=== PATIENT | female | born 1975 | race Caucasian/White ===

== ENCOUNTER 2022-01-09 15:51 | Emergency (ER) | payer OTHER, SELFPAY ==
--- OUTSIDE RECORDS SUMMARY | 2022-01-09 15:58 | XMS REPORT | Continuity of Care Document ---
:1975 Author Organization [facility] t Address [address] [place] [address] Care Team Providers Name Role Phone KEY ONTIVEROS Primary Care Physician Unavailable Aldo, S Attending Clinician Unavailable Susanna LY Attending Clinician Unavailable Susanna Ly DO Attending Clinician Leti Pink Attending Clinician Doctor Unassigned, Name Attending Clinician Unavailable Radiology Attending Clinician Unavailable RADIOLOGY Attending Clinician Unavailable Surinder GREGG Attending Clinician Unavailable WM PICHARDO Attending Clinician Unavailable Wm Pichardo DO Attending Clinician Only, Test Attending Clinician Unavailable Lazaro WHITE, H Attending Clinician [facility] Attending Clinician [phone] Aly Cardoso NP Attending Clinician Aries WHITE Attending Clinician Alberto Attending Clinician RHONDA H Attending Clinician Unavailable Chey ANDERSON Attending Clinician Unavailable MANDY Attending Clinician Unavailable Resident Jose Attending Clinician Unavailable Anderson MD, W Attending Clinician Omaghomi WELD FITTER Attending Clinician Unknown Attending Clinician Unavailable Mandy DUBOSES Attending Clinician Virology, Pedi Infec Disease Attending Clinician Unavailgabriella García MD, O Attending Clinician Adán WHITE Attending Clinician Hi DUCKWORTH, M Attending Clinician Unavailable Gemini WHITE Attending Clinician Laura WHITE, E Attending Clinician Mir RN Attending Clinician Unavailable [facility] Attending Clinician Unavailable Fellow, [facility] Attending Clinician Unavailable Des VALDEZ Attending Clinician Noel WICKP Attending Clinician NOEL Attending Clinician Unavailable Physician, Primary or Family Admitting Clinician UnavailSusanna Lofton Admitting Clinician Unavailable Maribell ELLIS Admitting Clinician Unavailable Payers Payer Name Policy Type Policy Number Effective Date Expiration Date S [employer] [place] [id number] 2020 00:00:00 WOMEN Problems Condition Condition Condition Status Onset Resolution Last Treating Co mments Source Name Details Category Date Date Treatment Clinician Date Drug-induc Drug-induc Disease Active U nivers ed ed 5-28 ity of hepatitis [place] 00:[place] [facility] Amphetamin Amphetamin Disease Active U nivers e use e use 5-28 [place] disorder, [place], [place] Essential Essential Disease Active Uni vers hypertensi hypertensi 5-28 it y of on on 00:00: [place] [facility] Amphetamin Amphetamin Disease Active U nivers e use e use 5-28 [place] disorder, disorder, [place] [facility] Papanicola Papanicola Disease Active Overview : Univers ou smear ou smear 06-27 Formattin ity of of cervix of cervix 00:00: [place] with high with high 00 note Medi jj grade grade might be Branch squamous squamous different intraepith intraepith from the raul carter original. 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 Per pap result "CONSIDER COLPOSCOP Y AND BIOPSY. IF A BIOPSY IS EVALUATED AT ANOTHERIN STITUTION , PLEASE FORWARD A COPY OF THE PATHOLOGY REPORT TO THE [facility] CYTOPATHO LOGY LABORATOR Y FOR RN RECOVERY PURPOSES. " Cervical Cervical Disease Active Overview: Un maira high risk high risk 06-24 Formattin i ty of human human 00:00: g of this [place] papillomav papillomav 00 note Me dical irus (HPV) irus (HPV) might be Branch DNA test DNA test different positive positive from the original. Pap pending Hypothyroi Hypothyroi Disease Active 2005-10 Overview : Univers dism dism 10-25 Formattin ity of 00:00: g of this [place] 00 note Medical might be Branch different from the original. 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 Allergies, Adverse Reactions, Alerts Allergy Allergy Status Severity Reaction(s) Onset Inactive Treating Comm ents Source Name Type Date Date Clinician No Known DA Active U 2020-10 [facility] Allergie 0-14 Clear s 00:00: Garcia 00 [facility] No Known DA Active U 2020-10 [facility] Allergie 0-14 Clear s 00:00: Garcia 00 [facility] morphine DA Active MO ITCHING [facility] 3-17 [place] 00:00: d 00 [facility] morphine DA Active MO 2018-0 [facility] 3-17 Clear 00:00: Garcia 00 [facility] Morphine Propensi Active Itching 2005-10 Unive rs ty to 10-25 ity of adverse 00:00: [place] reaction 00 [facility] Branch MORPHINE DRUG Active Low ITCHING 2005-10 Univers INGREDI 10-25 ity of 00:00: [place] 00 [facility] Social History Social Habit Start Date Stop Date Quantity Comments Source ASSERTION 2019-03-01 University of 00:00:00 [facility] Exposure to Yes University of SARS-CoV-2 (event) [facility] Alcohol intake 2021-11-19 2021-11-19 Current University 00:00:00 00:00:00 non-drinker of [facility] alcohol Branch (finding) Cigarettes smoked 2020-03-19 2020-03-19 Univers ity of current (pack per 00:00:00 00:00:00 [facility] ed) - Reported Branch Tobacco use and 2020-03-19 2020-03-19 Never used Universit y of exposure 00:00:00 00:00:00 [facility] Cigarette 2020-03-19 2020-03-19 University of pack-years 00:00:00 00:00:00 [facility] Tobacco Comment 2019-08-07 2019-08-07 qiut in aug 2018 Uni versity of 00:00:00 00:00:00 [facility] History of tobacco 2018-03-19 Cigarette Smoker University of use 00:00:00 [facility] Sex [birth year] At [birth year] Universit y of 00:00:00 00:00:00 [facility] Smoking Status Start Date Stop Date Source Former smoker 2020-03-19 00:00:00 2020-03-19 00:00:00 Universi ty of [facility] Current every day 2019-07-11 00:00:00 [facility] smoker [facility] Medications Ordered Filled Start Stop Current Ordering Indication Dosage Frequency Signature Comments Components Source Medication Medication Date Date Medication? Clinician (SIG) Name Name ibuprofen 2021- No 600mg 600 mg, Uni vers (IBU) 11-19 Oral, ity of tablet 600 16:45: 15:52 ONCE, 1 [place] as mg 00 :00 dose, On Medical Fri Branch 11/19/21 at 1045, OSMAN NaCl 0.9% 2019- No 1000mL at 999 Uni vers (NS) bolus 04-24 mL/hr, ity of infusion 05:30: 06:15 1,000 mL, Av[facility] as 1,000 mL 00 :00 IV Medical Infusion, Branch ONCE, 1 dose, 04/24/20 at 0030, STAT dicyclomine 2019- No 20mg 20 mg, Uni vers (BENTYL) 04-24 Intramuscu ity of injection 05:30: 05:30 [place]CE [place] 20 mg 00 :00 NOW, 1 Medical dose, Fri Branch 04/24/20 at 0030, Routine ketorolac 2019- No 30mg 30 mg, Unive rs (TORADOL) 04-24 Slow IV ity of injection 05:30: 05:08 Push, [place] 30 mg 00 :00 ONCE, 1 Medical dose, Fri Branch 04/24/20 at 0030, Routine
membership manager approving Restricted medication : ALIZA LIU ketorolac 2020-0 Yes [id number] 10mg Take 1 U nivers 10 mg 7-03 tablet by ity of tablet 00:00: mouth [place] 00 every 6 Medical (six) Branch hours as needed for Pain (scale 4-6) or Pain (scale 7-10). traMADol 50 2020-0 Yes [id number] 50mg Take 1 Univers mg tablet 7-03 tablet by ity o f 00:00: mouth [place] 00 every 6 Medical (six) Branch hours as needed for Pain (scale 7-10). hyoscyamine 2020-[id number] 2 Univers sulfate 7-03 tablets ity of (LEVSIN/SL) 00:00: under the [place] 0.125 mg 00 tongue Medical sublingual every 6 Branch tablet (six) hours as needed (Abdominal pain or cramping). ondansetron 2020-0 Yes [id number] 8mg Take 1 Univers (ZOFRAN 7-03 tablet by ity of ODT) 8 mg 00:00: mouth [place] disintegrat 00 every 8 Medic al ing tablet (eight) Branch hours as needed for Nausea and Vomiting (N/V). ketorolac 2020-0 Yes [id number] 10mg Take 1 U nivers 10 mg 7-03 tablet by ity of tablet 00:00: mouth [place] 00 every 6 Medical (six) Branch hours as needed for Pain (scale 4-6) or Pain (scale 7-10). traMADol 50 2020-0 Yes [id number] 50mg Take 1 Univers mg tablet 7-03 tablet by ity o f 00:00: mouth [place] 00 every 6 Medical (six) Branch hours as needed for Pain (scale 7-10). hyoscyamine 2020-[id number] 2 Univers sulfate 7-03 tablets ity of (LEVSIN/SL) 00:00: under the [place] 0.125 mg 00 tongue Medical sublingual every 6 Branch tablet (six) hours as needed (Abdominal pain or cramping). ondansetron 2020-0 Yes [id number] 8mg Take 1 Univers (ZOFRAN 7-03 tablet by ity of ODT) 8 mg 00:00: mouth [place] disintegrat 00 every 8 Medic al ing tablet (eight) Branch hours as needed for Nausea and Vomiting (N/V). ketorolac 2020-0 Yes [id number] 10mg Take 1 U nivers 10 mg 7-03 tablet by ity of tablet 00:00: mouth [place] 00 every 6 Medical (six) Branch hours as needed for Pain (scale 4-6) or Pain (scale 7-10). traMADol 50 2020-0 Yes [id number] 50mg Take 1 Univers mg tablet 7-03 tablet by ity o f 00:00: mouth [place] 00 every 6 Medical (six) Branch hours as needed for Pain (scale 7-10). hyoscyamine 2020-[id number] 2 Univers sulfate 7-03 tablets ity of (LEVSIN/SL) 00:00: under the [place] 0.125 mg 00 tongue Medical sublingual every 6 Branch tablet (six) hours as needed (Abdominal pain or cramping). ondansetron 2020-0 Yes [id number] 8mg Take 1 Univers (ZOFRAN 7-03 tablet by ity of ODT) 8 mg 00:00: mouth [place] disintegrat 00 every 8 Medic al ing tablet (eight) Branch hours as needed for Nausea and Vomiting (N/V). ketorolac 2020-0 Yes [id number] 10mg Take 1 U nivers 10 mg 7-03 tablet by ity of tablet 00:00: mouth [place] 00 every 6 Medical (six) Branch hours as needed for Pain (scale 4-6) or Pain (scale 7-10). traMADol 50 2020-0 Yes [id number] 50mg Take 1 Univers mg tablet 7-03 tablet by ity o f 00:00: mouth [place] 00 every 6 Medical (six) Branch hours as needed for Pain (scale 7-10). hyoscyamine 2020-[id number] 2 Univers sulfate 7-03 tablets ity of (LEVSIN/SL) 00:00: under the [place] 0.125 mg 00 tongue Medical sublingual every 6 Branch tablet (six) hours as needed (Abdominal pain or cramping). ondansetron 2020-0 Yes [id number] 8mg Take 1 Univers (ZOFRAN 7-03 tablet by ity of ODT) 8 mg 00:00: mouth [place] disintegrat 00 every 8 Medic al ing tablet (eight) Branch hours as needed for Nausea and Vomiting (N/V). ketorolac 2020-0 Yes [id number] 10mg Take 1 U nivers 10 mg 7-03 tablet by ity of tablet 00:00: mouth [place] 00 every 6 Medical (six) Branch hours as needed for Pain (scale 4-6) or Pain (scale 7-10). traMADol 50 2020-0 Yes [id number] 50mg Take 1 Univers mg tablet 7-03 tablet by ity o f 00:00: mouth [place] 00 every 6 Medical (six) Branch hours as needed for Pain (scale 7-10). hyoscyamine 2020-[id number] 2 Univers sulfate 7-03 tablets ity of (LEVSIN/SL) 00:00: under the [place] 0.125 mg 00 tongue Medical sublingual every 6 Branch tablet (six) hours as needed (Abdominal pain or cramping). ondansetron 2020-0 Yes [id number] 8mg Take 1 Univers (ZOFRAN 7-03 tablet by ity of ODT) 8 mg 00:00: mouth [place] disintegrat 00 every 8 Medic al ing tablet (eight) Branch hours as needed for Nausea and Vomiting (N/V). ketorolac 2020-0 Yes [id number] 10mg Take 1 U nivers 10 mg 7-03 tablet by ity of tablet 00:00: mouth [place] 00 every 6 Medical (six) Branch hours as needed for Pain (scale 4-6) or Pain (scale 7-10). traMADol 50 2020-0 Yes [id number] 50mg Take 1 Univers mg tablet 7-03 tablet by ity o f 00:00: mouth [place] 00 every 6 Medical (six) Branch hours as needed for Pain (scale 7-10). hyoscyamine 2020-[id number] 2 Univers sulfate 7-03 tablets ity of (LEVSIN/SL) 00:00: under the [place] 0.125 mg 00 tongue Medical sublingual every 6 Branch tablet (six) hours as needed (Abdominal pain or cramping). ondansetron 2020-0 Yes [id number] 8mg Take 1 Univers (ZOFRAN 7-03 tablet by ity of ODT) 8 mg 00:00: mouth [place] disintegrat 00 every 8 Medic al ing tablet (eight) Branch hours as needed for Nausea and Vomiting (N/V). ketorolac 2020-0 Yes [id number] 10mg Take 1 U nivers 10 mg 7-03 tablet by ity of tablet 00:00: mouth [place] 00 every 6 Medical (six) Branch hours as needed for Pain (scale 4-6) or Pain (scale 7-10). traMADol 50 2020-0 Yes [id number] 50mg Take 1 Univers mg tablet 7-03 tablet by ity o f 00:00: mouth [place] 00 every 6 Medical (six) Branch hours as needed for Pain (scale 7-10). hyoscyamine 2020-[id number] 2 Univers sulfate 7-03 tablets ity of (LEVSIN/SL) 00:00: under the [place] 0.125 mg 00 tongue Medical sublingual every 6 Branch tablet (six) hours as needed (Abdominal pain or cramping). ondansetron 2020-0 Yes [id number] 8mg Take 1 Univers (ZOFRAN 7-03 tablet by ity of ODT) 8 mg 00:00: mouth [place] disintegrat 00 every 8 Medic al ing tablet (eight) Branch hours as needed for Nausea and Vomiting (N/V). ketorolac 2020-0 Yes [id number] 10mg Take 1 U nivers 10 mg 7-03 tablet by ity of tablet 00:00: mouth [place] 00 every 6 Medical (six) Branch hours as needed for Pain (scale 4-6) or Pain (scale 7-10). traMADol 50 2020-0 Yes [id number] 50mg Take 1 Univers mg tablet 7-03 tablet by ity o f 00:00: mouth [place] 00 every 6 Medical (six) Branch hours as needed for Pain (scale 7-10). hyoscyamine 2020-[id number] 2 Univers sulfate 7-03 tablets ity of (LEVSIN/SL) 00:00: under the [place] 0.125 mg 00 tongue Medical sublingual every 6 Branch tablet (six) hours as needed (Abdominal pain or cramping). ondansetron 2020-0 Yes [id number] 8mg Take 1 Univers (ZOFRAN 7-03 tablet by ity of ODT) 8 mg 00:00: mouth [place] disintegrat 00 every 8 Medic al ing tablet (eight) Branch hours as needed for Nausea and Vomiting (N/V). ketorolac 2020-0 Yes [id number] 10mg Take 1 U nivers 10 mg 7-03 tablet by ity of tablet 00:00: mouth [place] 00 every 6 Medical (six) Branch hours as needed for Pain (scale 4-6) or Pain (scale 7-10). traMADol 50 2020-0 Yes [id number] 50mg Take 1 Univers mg tablet 7-03 tablet by ity o f 00:00: mouth [place] 00 every 6 Medical (six) Branch hours as needed for Pain (scale 7-10). hyoscyamine 2020-[id number] 2 Univers sulfate - tablets ity of (LEVSIN/SL) 00:00: under the [place] 0.125 mg 00 tongue Medical sublingual every 6 Branch tablet (six) hours as needed (Abdominal pain or cramping). ondansetron 2020-0 Yes [id number] 8mg Take 1 Univers (ZOFRAN 7-03 tablet by ity of ODT) 8 mg 00:00: mouth [place] disintegrat 00 every 8 Medic al ing tablet (eight) Branch hours as needed for Nausea and Vomiting (N/V). ketorolac 2020-0 Yes [id number] 10mg Take 1 U nivers 10 mg 7-03 tablet by ity of tablet 00:00: mouth [place] 00 every 6 Medical (six) Branch hours as needed for Pain (scale 4-6) or Pain (scale 7-10). traMADol 50 2020-0 2021- No [id number] 50mg Take 1 Univers mg tablet -11-19 tablet by ity of 00:00: 00:00 mouth [place] 00 :00 every 6 Medical (six) Branch hours as needed for Pain (scale 7-10). hyoscyamine 2020-0 2021- No [id number] .25mg Place 2 Univers sulfate -12 21-28 tablets ity of (LEVSIN/SL) 00:00: 00:00 under the [place] 0.125 mg 00 :00 tongue Medical sublingual every 6 Branch tablet (six) hours as needed (Abdominal pain or cramping). ondansetron 2020-0 2021- No [id number] 8mg Take 1 Univers (ZOFRAN 7-03 11-19 tablet by ity of ODT) 8 mg 00:00: 00:00 mouth [place] disintegrat 00 :00 every 8 Medic al ing tablet (eight) Branch hours as needed for Nausea and Vomiting (N/V). traMADol 50 2020-0 Yes [id number] 50mg Take 1 Univers mg tablet 5-30 tablet by ity o f 00:00: mouth [place] 00 every Medical morning as Branch needed for Pain (scale 7-10). omeprazole 2020-0 Yes [id number] 40mg Take 1 U nivers 40 mg 5-30 capsule by ity of capsule 00:00: mouth [place] 00 daily. Medical Branch ondansetron 2020-0 Yes [id number] 8mg Take 1 Univers 8 mg tablet 5-30 tablet by ity of 00:00: mouth [place] 00 every 8 Medical (eight) Branch hours as needed for Nausea and Vomiting (N/V). traMADol 50 2020-0 Yes [id number] 50mg Take 1 Univers mg tablet 5-30 tablet by ity o f 00:00: mouth [place] 00 every Medical morning as Branch needed for Pain (scale 7-10). omeprazole 2020-0 Yes [id number] 40mg Take 1 U nivers 40 mg 5-30 capsule by ity of capsule 00:00: mouth [place] 00 daily. Medical Branch ondansetron 2020-0 Yes [id number] 8mg Take 1 Univers 8 mg tablet 5-30 tablet by ity of 00:00: mouth [place] 00 every 8 Medical (eight) Branch hours as needed for Nausea and Vomiting (N/V). traMADol 50 2020-0 Yes [id number] 50mg Take 1 Univers mg tablet 5-30 tablet by ity o f 00:00: mouth [place] 00 every Medical morning as Branch needed for Pain (scale 7-10). omeprazole 2020-0 Yes [id number] 40mg Take 1 U nivers 40 mg 5-30 capsule by ity of capsule 00:00: mouth [place] 00 daily. Medical Branch ondansetron 2020-0 Yes [id number] 8mg Take 1 Univers 8 mg tablet 5-30 tablet by ity of 00:00: mouth [place] 00 every 8 Medical (eight) Branch hours as needed for Nausea and Vomiting (N/V). traMADol 50 2020-0 Yes [id number] 50mg Take 1 Univers mg tablet 5-30 tablet by ity o f 00:00: mouth [place] 00 every Medical morning as Branch needed for Pain (scale 7-10). omeprazole 2020-0 Yes [id number] 40mg Take 1 U nivers 40 mg 5-30 capsule by ity of capsule 00:00: mouth [place] 00 daily. Medical Branch ondansetron 2020-0 Yes [id number] 8mg Take 1 Univers 8 mg tablet 5-30 tablet by ity of 00:00: mouth [place] 00 every 8 Medical (eight) Branch hours as needed for Nausea and Vomiting (N/V). traMADol 50 2020-0 Yes [id number] 50mg Take 1 Univers mg tablet 5-30 tablet by ity o f 00:00: mouth [place] 00 every Medical morning as Branch needed for Pain (scale 7-10). omeprazole 2020-0 Yes [id number] 40mg Take 1 U nivers 40 mg 5-30 capsule by ity of capsule 00:00: mouth [place] 00 daily. Medical Branch ondansetron 2020-0 Yes [id number] 8mg Take 1 Univers 8 mg tablet 5-30 tablet by ity of 00:00: mouth [place] 00 every 8 Medical (eight) Branch hours as needed for Nausea and Vomiting (N/V). traMADol 50 2020-0 Yes [id number] 50mg Take 1 Univers mg tablet 5-30 tablet by ity o f 00:00: mouth [place] 00 every Medical morning as Branch needed for Pain (scale 7-10). omeprazole 2020-0 Yes [id number] 40mg Take 1 U nivers 40 mg 5-30 capsule by ity of capsule 00:00: mouth [place] 00 daily. Medical Branch ondansetron 2020-0 Yes [id number] 8mg Take 1 Univers 8 mg tablet 5-30 tablet by ity of 00:00: mouth [place] 00 every 8 Medical (eight) Branch hours as needed for Nausea and Vomiting (N/V). traMADol 50 2020-0 Yes [id number] 50mg Take 1 Univers mg tablet 5-30 tablet by ity o f 00:00: mouth [place] 00 every Medical morning as Branch needed for Pain (scale 7-10). omeprazole 2020-0 Yes [id number] 40mg Take 1 U nivers 40 mg 5-30 capsule by ity of capsule 00:00: mouth [place] 00 daily. Medical Branch ondansetron 2020-0 Yes [id number] 8mg Take 1 Univers 8 mg tablet 5-30 tablet by ity of 00:00: mouth [place] 00 every 8 Medical (eight) Branch hours as needed for Nausea and Vomiting (N/V). traMADol 50 2020-0 Yes [id number] 50mg Take 1 Univers mg tablet 5-30 tablet by ity o f 00:00: mouth [place] 00 every Medical morning as Branch needed for Pain (scale 7-10). omeprazole 2020-0 Yes [id number] 40mg Take 1 U nivers 40 mg 5-30 capsule by ity of capsule 00:00: mouth [place] 00 daily. Medical Branch ondansetron 2020-0 Yes [id number] 8mg Take 1 Univers 8 mg tablet 5-30 tablet by ity of 00:00: mouth [place] 00 every 8 Medical (eight) Branch hours as needed for Nausea and Vomiting (N/V). traMADol 50 2020-0 Yes [id number] 50mg Take 1 Univers mg tablet 5-30 tablet by ity o f 00:00: mouth [place] 00 every Medical morning as Branch needed for Pain (scale 7-10). omeprazole 2020-0 Yes [id number] 40mg Take 1 U nivers 40 mg 5-30 capsule by ity of capsule 00:00: mouth [place] 00 daily. Medical Branch ondansetron 2020-0 Yes [id number] 8mg Take 1 Univers 8 mg tablet 5-30 tablet by ity of 00:00: mouth [place] 00 every 8 Medical (eight) Branch hours as needed for Nausea and Vomiting (N/V). traMADol 50 2020-0 Yes [id number] 50mg Take 1 Univers mg tablet 5-30 tablet by ity o f 00:00: mouth [place] 00 every Medical morning as Branch needed for Pain (scale 7-10). omeprazole 2020-0 Yes [id number] 40mg Take 1 U nivers 40 mg 5-30 capsule by ity of capsule 00:00: mouth [place] 00 daily. Medical Branch ondansetron 2020-0 Yes [id number] 8mg Take 1 Univers 8 mg tablet 5-30 tablet by ity of 00:00: mouth [place] 00 every 8 Medical (eight) Branch hours as needed for Nausea and Vomiting (N/V). traMADol 50 2021- No [id number] 50mg Take 1 Univers mg tablet 03-21 tablet by ity of 00:00: 00:00 mouth [place] 00 :00 every Medical morning as Branch needed for Pain (scale 7-10). omeprazole 2021- No [id number] 40mg Take 1 Univers 40 mg -11-19 capsule by ity of capsule 00:00: 00:00 mouth [place] 00 :00 daily. Medical Branch ondansetron 2021- No [id number] 8mg Take 1 Univers 8 mg tablet 03-21 tablet by it y of 00:00: 00:00 mouth [place] 00 :00 every 8 Medical (eight) Branch hours as needed for Nausea and Vomiting (N/V). levothyroxi 2018-10 Yes [id number] 175ug Take 1 Univers ne 175 mcg 0-28 tablet by ity of tablet 00:00: mouth [place] 00 every Medical morning. Branch levothyroxi 2018-10 Yes [id number] 175ug Take 1 Univers ne 175 mcg 0-28 tablet by ity of tablet 00:00: mouth [place] 00 every Medical morning. Branch levothyroxi 2018-10 Yes [id number] 175ug Take 1 Univers ne 175 mcg 0-28 tablet by ity of tablet 00:00: mouth [place] 00 every Medical morning. Branch levothyroxi 2018-10 Yes [id number] 175ug Take 1 Univers ne 175 mcg 0-28 tablet by ity of tablet 00:00: mouth [place] 00 every Medical morning. Branch levothyroxi 2018-10 Yes [id number] 175ug Take 1 Univers ne 175 mcg 0-28 tablet by ity of tablet 00:00: mouth [place] 00 every Medical morning. Branch levothyroxi 2018-10 Yes [id number] 175ug Take 1 Univers ne 175 mcg 0-28 tablet by ity of tablet 00:00: mouth [place] 00 every Medical morning. Branch levothyroxi 2018-10 Yes [id number] 175ug Take 1 Univers ne 175 mcg 0-28 tablet by ity of tablet 00:00: mouth [place] 00 every Medical morning. Branch levothyroxi 2018-10 Yes [id number] 175ug Take 1 Univers ne 175 mcg 0-28 tablet by ity of tablet 00:00: mouth [place] 00 every Medical morning. Branch levothyroxi 2018-10 Yes [id number] 175ug Take 1 Univers ne 175 mcg 0-28 tablet by ity of tablet 00:00: mouth [place] 00 every Medical morning. Branch levothyroxi 2018-10 Yes [id number] 175ug Take 1 Univers ne 175 mcg 0-28 tablet by ity of tablet 00:00: mouth [place] 00 every Medical morning. Branch levothyroxi 2018-10 Yes [id number] 175ug Take 1 Univers ne 175 mcg 0-28 tablet by ity of tablet 00:00: mouth [place] 00 every Medical morning. Branch metoprolol 2018-10 Yes [id number] 50mg Take 1 U nivers succinate 0-16 tablet by ity o f XL 50 mg 24 00:00: mouth [place] hr tablet 00 daily. Medical Branch metoprolol 2018-10 Yes [id number] 50mg Take 1 U nivers succinate 0-16 tablet by ity o f XL 50 mg 24 00:00: mouth [place] hr tablet 00 daily. Medical Branch metoprolol 2018-10 Yes [id number] 50mg Take 1 U nivers succinate 0-16 tablet by ity o f XL 50 mg 24 00:00: mouth [place] hr tablet 00 daily. Medical Branch metoprolol 2018-10 Yes [id number] 50mg Take 1 U nivers succinate 0-16 tablet by ity o f XL 50 mg 24 00:00: mouth [place] hr tablet 00 daily. Medical Branch metoprolol 2018-10 Yes [id number] 50mg Take 1 U nivers succinate 0-16 tablet by ity o f XL 50 mg 24 00:00: mouth [place] hr tablet 00 daily. Medical Branch metoprolol 2018-10 Yes [id number] 50mg Take 1 U nivers succinate 0-16 tablet by ity o f XL 50 mg 24 00:00: mouth [place] hr tablet 00 daily. Medical Branch metoprolol 2018-10 Yes [id number] 50mg Take 1 U nivers succinate 0-16 tablet by ity o f XL 50 mg 24 00:00: mouth [place] hr tablet 00 daily. Medical Branch metoprolol 2018-10 Yes [id number] 50mg Take 1 U nivers succinate 0-16 tablet by ity o f XL 50 mg 24 00:00: mouth [place] hr tablet 00 daily. Medical Branch metoprolol 2018-10 Yes [id number] 50mg Take 1 U nivers succinate 0-16 tablet by ity o f XL 50 mg 24 00:00: mouth [place] hr tablet 00 daily. [facility] metoprolol 2018- Yes [id number] 50mg Take 1 U nivers succinate 0-16 tablet by ity o f XL 50 mg 24 00:00: mouth [place] hr tablet 00 daily. [facility] metoprolol 2018- Yes [id number] 50mg Take 1 U nivers succinate 0-16 tablet by ity o f XL 50 mg 24 00:00: mouth [place] hr tablet 00 daily. [facility] escitalopra 2019-0 Yes 5mg Take 5 mg U nivers m oxalate 5 9-29 by mouth ity of mg tablet 00:00: daily. [facility] escitalopra 2019-0 Yes 5mg Take 5 mg U nivers m oxalate 5 9-29 by mouth ity of mg tablet 00:00: daily. [facility] escitalopra 2019-0 Yes 5mg Take 5 mg U nivers m oxalate 5 9-29 by mouth ity of mg tablet 00:00: daily. [facility] escitalopra 2019-0 Yes 5mg Take 5 mg U nivers m oxalate 5 9-29 by mouth ity of mg tablet 00:00: daily. [facility] escitalopra 2019-0 Yes 5mg Take 5 mg U nivers m oxalate 5 9-29 by mouth ity of mg tablet 00:00: daily. [facility] escitalopra 2019-0 Yes 5mg Take 5 mg U nivers m oxalate 5 9-29 by mouth ity of mg tablet 00:00: daily. [facility] escitalopra 2019-0 Yes 5mg Take 5 mg U nivers m oxalate 5 9-29 by mouth ity of mg tablet 00:00: daily. [facility] escitalopra 2019-0 Yes 5mg Take 5 mg U nivers m oxalate 5 9-29 by mouth ity of mg tablet 00:00: daily. [facility] escitalopra 2019-0 Yes 5mg Take 5 mg U nivers m oxalate 5 9-29 by mouth ity of mg tablet 00:00: daily. [facility] escitalopra 2019-0 Yes 5mg Take 5 mg U nivers m oxalate 5 9-29 by mouth ity of mg tablet 00:00: daily. [facility] escitalopra 2019-0 Yes 5mg Take 5 mg U nivers m oxalate 5 07-21 by mouth ity of mg tablet 00:00: daily. [place] 00 Medical Branch etonogestre 2019- No [id number] 68mg Univers l 07-11 ity of (NEXPLANON) 22:00: 19:00 [place] implant 68 00 :00 Medical mg Branch etonogestre 2019- No [id number] 68mg 68 mg, Univers l 07-11 Subdermal, ity of (NEXPLANON) 22:00: 19:00 ONCE NOW, [place] implant 68 00 :00 1 dose, Medica l mg Lisa Branch 07/11/19 at 1700, Routine
Use approved by: [employer] amoxicillin 2019- No [id number] 500mg Take 1 Univers 500 mg 8-30 -25 tablet by ity of tablet 00:00: 04:59 mouth 2 [place] 00 :00 (two) Medical times Branch daily for 25 days. amoxicillin 2019- No [id number] 500mg Take 1 Univers 500 mg 8-30 -25 tablet by ity of tablet 00:00: 04:59 mouth 2 [place] 00 :00 (two) Medical times Branch daily for 25 days. amoxicillin 2019- No [id number] 500mg Take 1 Univers 500 mg 8-22 07-25 tablet by ity of tablet 00:00: 04:59 mouth 2 [place] 00 :00 (two) Medical times Branch daily for 25 days. amoxicillin 2019- No [id number] 500mg Take 1 Univers 500 mg 8-22 07-25 tablet by ity of tablet 00:00: 04:59 mouth 2 [place] 00 :00 (two) Medical times Branch daily for 25 days. amoxicillin 2019- No [id number] 500mg Take 1 Univers 500 mg 8-30 -25 tablet by ity of tablet 00:00: 04:59 mouth 2 [place] 00 :00 (two) Medical times Branch daily for 25 days. amoxicillin 2019- No [id number] 500mg Take 1 Univers 500 mg 8-30 -25 tablet by ity of tablet 00:00: 04:59 mouth 2 [place] 00 :00 (two) Medical times Branch daily for 25 days. levothyroxi 2018- Yes [id number] 200ug Take 1 Univers ne 200 mcg 8-09 tablet by ity of tablet 00:00: mouth [place] 00 every Medical morning. Branch levothyroxi 2019-0 Yes [id number] 200ug Take 1 Univers ne 200 mcg 8-09 tablet by ity of tablet 00:00: mouth [place] 00 every Medical morning. Branch levothyroxi 2019-0 Yes [id number] 200ug Take 1 Univers ne 200 mcg 8-09 tablet by ity of tablet 00:00: mouth [place] 00 every Medical morning. Branch levothyroxi 2019-0 Yes [id number] 200ug Take 1 Univers ne 200 mcg 8-09 tablet by ity of tablet 00:00: mouth [place] 00 every Medical morning. Branch levothyroxi 2019-0 Yes [id number] 200ug Take 1 Univers ne 200 mcg 8-09 tablet by ity of tablet 00:00: mouth [place] 00 every Medical morning. Branch levothyroxi 2019-0 Yes [id number] 200ug Take 1 Univers ne 200 mcg 8-09 tablet by ity of tablet 00:00: mouth [place] 00 every Medical morning. Branch levothyroxi 2019-0 Yes [id number] 200ug Take 1 Univers ne 200 mcg 8-09 tablet by ity of tablet 00:00: mouth [place] 00 every Medical morning. Branch levothyroxi 2019-0 Yes [id number] 200ug Take 1 Univers ne 200 mcg 8-09 tablet by ity of tablet 00:00: mouth [place] 00 every Medical morning. Branch levothyroxi 2019-0 Yes [id number] 200ug Take 1 Univers ne 200 mcg 8-09 tablet by ity of tablet 00:00: mouth [place] 00 every Medical morning. Branch levothyroxi 2019-0 Yes [id number] 200ug Take 1 Univers ne 200 mcg 8-09 tablet by ity of tablet 00:00: mouth [place] 00 every Medical morning. Branch levothyroxi 2019-0 Yes [id number] 200ug Take 1 Univers ne 200 mcg 8-09 tablet by ity of tablet 00:00: mouth [place] 00 every Medical morning. Branch levothyroxi 2019-0 Yes [id number] 200ug Take 1 Univers ne 200 mcg 8-09 tablet by ity of tablet 00:00: mouth [place] 00 every Medical morning. Branch levothyroxi 2019-0 Yes [id number] 200ug Take 1 Univers ne 200 mcg 8-09 tablet by ity of tablet 00:00: mouth [place] 00 every Medical morning. Branch levothyroxi 2018- Yes [id number] 200ug Take 1 Univers ne 200 mcg 8-09 tablet by ity of tablet 00:00: mouth [place] 00 every Medical morning. Branch levothyroxi 2018-0 Yes [id number] 200ug Take 1 Univers ne 200 mcg 8-09 tablet by ity of tablet 00:00: mouth [place] 00 every Medical morning. Branch levothyroxi Yes [id number] 200ug Take 1 Univers ne 200 mcg 8-09 tablet by ity of tablet 00:00: mouth [place] 00 every Medical morning. Branch metroNIDAZO 2019- No [id number] 500mg Take 1 Univers LE 500 mg 8- 08-20 tablet by ity of tablet 00:00: 04:59 mouth [place] 00 :00 every 8 Medical (eight) Branch hours for 10 days. amoxicillin 2019- No [id number] 500mg Take 1 Univers 500 mg 8- 08-20 tablet by ity of tablet 00:00: 04:59 mouth 2 [place] 00 :00 (two) Medical times Branch daily for 10 days. metroNIDAZO 2019- No [id number] 500mg Take 1 Univers LE 500 mg 8- 08-20 tablet by ity of tablet 00:00: 04:59 mouth [place] 00 :00 every 8 Medical (eight) Branch hours for 10 days. amoxicillin 2018- 2019- No [id number] 500mg Take 1 Univers 500 mg 8- 08-20 tablet by ity of tablet 00:00: 04:59 mouth 2 [place] 00 :00 (two) Medical times Branch daily for 10 days. metroNIDAZO 2018- 2019- No [id number] 500mg Take 1 Univers LE 500 mg 8- 08-20 tablet by ity of tablet 00:00: 04:59 mouth [place] 00 :00 every 8 Medical (eight) Branch hours for 10 days. amoxicillin 2018-0 2019- No [id number] 500mg Take 1 Univers 500 mg 8-09 08-20 tablet by ity of tablet 00:00: 04:59 mouth 2 [place] 00 :00 (two) Medical times Branch daily for 10 days. metroNIDAZO 2018-0 2019- No [id number] 500mg Take 1 Univers LE 500 mg 8-09 08-20 tablet by ity of tablet 00:00: 04:59 mouth [place] 00 :00 every 8 Medical (eight) Branch hours for 10 days. amoxicillin 2018- No [id number] 500mg Take 1 Univers 500 mg 05-31-20 tablet by ity of tablet 00:00: 04:59 mouth 2 [place] 00 :00 (two) Medical times [place] daily for 10 days. hydrALAZINE 2018- No 10mg 10 mg, Uni vers (APRESOLINE 05-30-08 Oral, ity of ) tablet 10 20:30: 19:44 ONCE, 1 [place] mg 00 :00 dose, [facility] Medical 05/30/19 at Branch 1530, Routine Melatonin 5 2018- No 1{tbl} Take 1 Tab Univers mg Tab 05-30 08-08 by mouth ity of 19:16: 00:00 as needed. [place] 17 :00 [facility] Melatonin 5 2018- No 1{tbl} Take 1 Tab Univers mg Tab 05-30 08-08 by mouth ity of 19:16: 00:00 as needed. [place] 17 :00 [facility] Melatonin 5 2018- No 1{tbl} Take 1 Tab Univers mg Tab 05-30 08-08 by mouth ity of 19:16: 00:00 as needed. [place] 17 :00 [facility] Ibuprofen 2018- No 600mg Take 600 Un maira (ADVIL 8- 08-08 mg by ity of LIQUI-GEL) 19:16: 00:00 mouth [place] 200 mg Cap 07 :00 needed. [facility] Ibuprofen 2018- No 600mg Take 600 Un maira (ADVIL 8-08 08-08 mg by ity of LIQUI-GEL) 19:16: 00:00 mouth as [place] 200 mg Cap 07 :00 needed. [facility] Ibuprofen 2018- No 600mg Take 600 Un maira (ADVIL 8-08 08-08 mg by ity of LIQUI-GEL) 19:16: 00:00 mouth [place] 200 mg Cap 07 :00 needed. [facility] NIFEdipine 2018- No 60mg 60 mg, [facility] 05-30 08-08 Oral, ity of (AFEDITAB 18:15: 18:02 [place]CE, [place] tablet 00 :00 dose, [facility] jj 60 mg 05/30/19 at Branch 1315, Routine NIFEdipine 2019- No [id number] 90mg Take 1 Univers XL 90 mg 24 05-30 tablet by it y of hr tablet 00:00: 04:59 mouth [place] 00 :00 daily for Medical 30 days. Branch NIFEdipine 2019- No [id number] 90mg Take 1 Univers XL 90 mg 24 05-30 tablet by it y of hr tablet 00:00: 04:59 mouth [place] 00 :00 daily for Medical 30 days. Branch NIFEdipine 2019- No [id number] 90mg Take 1 Univers XL 90 mg 24 05-30 tablet by it y of hr tablet 00:00: 04:59 mouth [place] 00 :00 daily for Medical 30 days. Branch NIFEdipine 2018- 2019- No [id number] 90mg Take 1 Univers XL 90 mg 24 05-30 tablet by it y of hr tablet 00:00: 04:59 mouth [place] 00 :00 daily for Medical 30 days. [place] NIFEdipine 2019- No [id number] 90mg Take 1 Univers XL 90 mg 24 05-30 tablet by it y of hr tablet 00:00: 04:59 mouth [place] 00 :00 daily for Medical 30 days. Branch NIFEdipine 2019- No [id number] 90mg Take 1 Univers XL 90 mg 24 05-30 tablet by it y of hr tablet 00:00: 04:59 mouth [place] 00 :00 daily for Medical 30 days. [place] NIFEdipine 2019- No [id number] 90mg Take 1 Univers XL 90 mg 24 05-30 tablet by it y of hr tablet 00:00: 04:59 mouth [place] 00 :00 daily for Medical 30 days. Branch NIFEdipine 2019- No [id number] 90mg Take 1 Univers XL 90 mg 24 05-30 tablet by it y of hr tablet 00:00: 04:59 mouth [place] 00 :00 daily for Medical 30 days. Branch NIFEdipine 2018- 2019- No [id number] 90mg Take 1 Univers XL 90 mg 24 05-30 tablet by it y of hr tablet 00:00: 04:59 mouth [place] 00 :00 daily for Medical 30 days. Branch NIFEdipine 2018- 2019- No [id number] 90mg Take 1 Univers XL 90 mg 24 05-30 tablet by it y of hr tablet 00:00: 04:59 mouth [place] 00 :00 daily for Medical 30 days. Branch NIFEdipine 2019- No [id number] 90mg Take 1 Univers XL 90 mg 24 05-30 tablet by it y of hr tablet 00:00: 04:59 mouth [place] 00 :00 daily for Medical 30 days. Branch NIFEdipine 2018- No [id number] 90mg Take 1 Univers XL 90 mg 24 05-30 tablet by it y of hr tablet 00:00: 04:59 mouth [place] 00 :00 daily for Medical 30 days. Branch NIFEdipine 2018- No [id number] 90mg Take 1 Univers XL 90 mg 24 05-30 tablet by it y of hr tablet 00:00: 04:59 mouth [place] 00 :00 daily for Medical 30 days. Branch NIFEdipine 2018- No [id number] 90mg Take 1 Univers XL 90 mg 24 05-30 tablet by it y of hr tablet 00:00: 04:59 mouth [place] 00 :00 daily for Medical 30 days. Branch hydrochloro Yes [id number] 25mg Take 1 Tab Univers thiazide 6-05 by mouth ity of (ESIDRIX) 00:00: daily. [place] 25 mg 00 Medical tablet Branch levothyroxi Yes [id number] 150ug Take 1 Tab Univers ne 6-05 by mouth ity of (SYNTHROID) 00:00: every [place] 150 mcg 00 morning. Medical tablet Branch hydrochloro Yes [id number] 25mg Take 1 Tab Univers thiazide 6-05 by mouth ity of (ESIDRIX) 00:00: daily. [place] 25 mg 00 Medical tablet Branch levothyroxi 0 Yes [id number] 150ug Take 1 Tab Univers ne 6-05 by mouth ity of (SYNTHROID) 00:00: every [place] 150 mcg 00 morning. Medical tablet Branch hydrochloro Yes [id number] 25mg Take 1 Tab Univers thiazide 6-05 by mouth ity of (ESIDRIX) 00:00: daily. [place] 25 mg 00 Medical tablet Branch levothyroxi Yes [id number] 150ug Take 1 Tab Univers ne 6-05 by mouth ity of (SYNTHROID) 00:00: every [place] 150 mcg 00 morning. Medical tablet Branch hydrochloro Yes [id number] 25mg Take 1 Tab Univers thiazide 6-05 by mouth ity of (ESIDRIX) 00:00: daily. [place] 25 mg 00 Medical tablet Branch levothyroxi 0 Yes [id number] 150ug Take 1 Tab Univers ne 6-05 by mouth ity of (SYNTHROID) 00:00: every [place] 150 mcg 00 morning. Medical tablet Branch hydrochloro 0 Yes [id number] 25mg Take 1 Tab Univers thiazide 6-05 by mouth ity of (ESIDRIX) 00:00: daily. [place] 25 mg 00 Medical tablet Branch levothyroxi Yes [id number] 150ug Take 1 Tab Univers ne 6-05 by mouth ity of (SYNTHROID) 00:00: every [place] 150 mcg 00 morning. Medical tablet Branch hydrochloro Yes [id number] 25mg Take 1 Tab Univers thiazide 6-05 by mouth ity of (ESIDRIX) 00:00: daily. [place] 25 mg 00 Medical tablet Branch levothyroxi Yes [id number] 150ug Take 1 Tab Univers ne 6-05 by mouth ity of (SYNTHROID) 00:00: every [place] 150 mcg 00 morning. Medical tablet Branch hydrochloro Yes [id number] 25mg Take 1 Tab Univers thiazide 6-05 by mouth ity of (ESIDRIX) 00:00: daily. [place] 25 mg 00 Medical tablet Branch levothyroxi Yes [id number] 150ug Take 1 Tab Univers ne 6-05 by mouth ity of (SYNTHROID) 00:00: every [place] 150 mcg 00 morning. Medical tablet Branch hydrochloro Yes [id number] 25mg Take 1 Tab Univers thiazide 6-05 by mouth ity of (ESIDRIX) 00:00: daily. [place] 25 mg 00 Medical tablet Branch levothyroxi Yes [id number] 150ug Take 1 Tab Univers ne 6-05 by mouth ity of (SYNTHROID) 00:00: every [place] 150 mcg 00 morning. Medical tablet Branch hydrochloro Yes [id number] 25mg Take 1 Tab Univers thiazide 6-05 by mouth ity of (ESIDRIX) 00:00: daily. [place] 25 mg 00 Medical tablet Branch levothyroxi Yes [id number] 150ug Take 1 Tab Univers ne 6-05 by mouth ity of (SYNTHROID) 00:00: every [place] 150 mcg 00 morning. Medical tablet Branch hydrochloro 2014-0 Yes [id number] 25mg Take 1 Tab Univers thiazide 6-05 by mouth ity of (ESIDRIX) 00:00: daily. [place] 25 mg 00 Medical tablet Branch levothyroxi 2014-0 Yes [id number] 150ug Take 1 Tab Univers ne 6-05 by mouth ity of (SYNTHROID) 00:00: every [place] 150 mcg 00 morning. Medical tablet Branch hydrochloro 2014-0 Yes [id number] 25mg Take 1 Tab Univers thiazide 6-05 by mouth ity of (ESIDRIX) 00:00: daily. [place] 25 mg 00 Medical tablet Branch levothyroxi 2014-0 Yes [id number] 150ug Take 1 Tab Univers ne 6-05 by mouth ity of (SYNTHROID) 00:00: every [place] 150 mcg 00 morning. Medical tablet Branch hydrochloro 0 Yes [id number] 25mg Take 1 Tab Univers thiazide 6-05 by mouth ity of (ESIDRIX) 00:00: daily. [place] 25 mg 00 Medical tablet Branch levothyroxi 2014-0 Yes [id number] 150ug Take 1 Tab Univers ne 6-05 by mouth ity of (SYNTHROID) 00:00: every [place] 150 mcg 00 morning. Medical tablet Branch hydrochloro 2014-0 Yes [id number] 25mg Take 1 Tab Univers thiazide 6-05 by mouth ity of (ESIDRIX) 00:00: daily. [place] 25 mg 00 Medical tablet Branch levothyroxi 2014-0 Yes [id number] 150ug Take 1 Tab Univers ne 6-05 by mouth ity of (SYNTHROID) 00:00: every [place] 150 mcg 00 morning. Medical tablet Branch hydrochloro 2014-0 Yes [id number] 25mg Take 1 Tab Univers thiazide 6-05 by mouth ity of (ESIDRIX) 00:00: daily. [place] 25 mg 00 Medical tablet Branch levothyroxi 2014-0 Yes [id number] 150ug Take 1 Tab Univers ne 6-05 by mouth ity of (SYNTHROID) 00:00: every [place] 150 mcg 00 morning. Medical tablet Branch hydrochloro 2014-0 Yes [id number] 25mg Take 1 Tab Univers thiazide 6-05 by mouth ity of (ESIDRIX) 00:00: daily. [place] 25 mg 00 Medical tablet Branch levothyroxi 2014-0 Yes [id number] 150ug Take 1 Tab Univers ne 6-05 by mouth ity of (SYNTHROID) 00:00: every [place] 150 mcg 00 morning. Medical tablet Branch hydrochloro 2014-0 Yes [id number] 25mg Take 1 Tab Univers thiazide 6-05 by mouth ity of (ESIDRIX) 00:00: daily. [place] 25 mg 00 Medical tablet Branch levothyroxi 2014-0 Yes [id number] 150ug Take 1 Tab Univers ne 6-05 by mouth ity of (SYNTHROID) 00:00: every [place] 150 mcg 00 morning. Medical tablet Branch hydrochloro 2014-0 Yes [id number] 25mg Take 1 Tab Univers thiazide 6-05 by mouth ity of (ESIDRIX) 00:00: daily. [place] 25 mg 00 Medical tablet Branch levothyroxi 2014-0 Yes [id number] 150ug Take 1 Tab Univers ne 6-05 by mouth ity of (SYNTHROID) 00:00: every [place] 150 mcg 00 morning. Medical tablet Branch hydrochloro 2014-0 Yes [id number] 25mg Take 1 Tab Univers thiazide 6-05 by mouth ity of (ESIDRIX) 00:00: daily. [place] 25 mg 00 Medical tablet Branch levothyroxi 0 Yes [id number] 150ug Take 1 Tab Univers ne 6-05 by mouth ity of (SYNTHROID) 00:00: every [place] 150 mcg 00 morning. Medical tablet Branch hydrochloro 0 Yes [id number] 25mg Take 1 Tab Univers thiazide 6-05 by mouth ity of (ESIDRIX) 00:00: daily. [place] 25 mg 00 Medical tablet Branch levothyroxi 2014-0 Yes [id number] 150ug Take 1 Tab Univers ne 6-05 by mouth ity of (SYNTHROID) 00:00: every [place] 150 mcg 00 morning. Medical tablet Branch hydrochloro 2014-0 Yes [id number] 25mg Take 1 Tab Univers thiazide 6-05 by mouth ity of (ESIDRIX) 00:00: daily. [place] 25 mg 00 Medical tablet Branch levothyroxi 2014-0 Yes [id number] 150ug Take 1 Tab Univers ne 6-05 by mouth ity of (SYNTHROID) 00:00: every [place] 150 mcg 00 morning. Medical tablet Branch hydrochloro 2014-0 Yes [id number] 25mg Take 1 Tab Univers thiazide 6-05 by mouth ity of (ESIDRIX) 00:00: daily. [place] 25 mg 00 Medical tablet Branch levothyroxi Yes [id number] 150ug Take 1 Tab Univers ne 6-05 by mouth ity of (SYNTHROID) 00:00: every [place] 150 mcg 00 morning. Medical tablet Branch hydrochloro Yes [id number] 25mg Take 1 Tab Univers thiazide 6-05 by mouth ity of (ESIDRIX) 00:00: daily. [place] 25 mg 00 Medical tablet Branch levothyroxi Yes [id number] 150ug Take 1 Tab Univers ne 6-05 by mouth ity of (SYNTHROID) 00:00: every [place] 150 mcg 00 morning. Medical tablet Branch Ibuprofen Yes 600mg Take 600 Uni vers (ADVIL 9-18 mg by ity of LIQUI-GEL) 16:40: mouth as [place] 200 mg Cap 57 needed. [facility] Ibuprofen Yes 600mg Take 600 Uni vers (ADVIL 9-18 mg by ity of LIQUI-GEL) 16:40: mouth as [place] 200 mg Cap 57 needed. [facility] Ibuprofen Yes 600mg Take 600 Uni vers (ADVIL 9-18 mg by ity of LIQUI-GEL) 16:40: mouth as [place] 200 mg Cap 57 needed. [facility] Melatonin 5 Yes 1{tbl} Take 1 Tab Univers mg Tab 8-29 by mouth ity of 19:06: as needed. [address] Melatonin 5 Yes 1{tbl} Take 1 Tab Univers mg Tab 8-29 by mouth ity of 19:06: as needed. [address] Melatonin 5 Yes 1{tbl} Take 1 Tab Univers mg Tab 8-29 by mouth ity of 19:06: as needed. [address] Immunizations Ordered Filled Immunization Date Status Comments [facility] Immunization Name Name Pfizer COVID-19 Pfizer COVID-19 2021-09-21 Completed Vaccine Vaccine 00:00:00 SARS-COV-2 COVID-19 2021-01-29 Completed Unive rsity of PFIZER VACCINE 00:00:00 [facility] SARS-COV-2 COVID-19 2021-01-29 Completed Unive rsity of PFIZER VACCINE 00:00:00 [facility] Pfizer COVID-19 Pfizer COVID-19 2021-01-29 Completed Vaccine Vaccine 00:00:00 SARS-COV-2 COVID-19 2021-01-29 Completed Unive rsity of PFIZER VACCINE 00:00:00 [facility] SARS-COV-2 COVID-19 2021-01-29 Completed Unive rsity of PFIZER VACCINE 00:00:00 [facility] SARS-COV-2 COVID-19 2021-01-29 Completed Unive rsity of PFIZER VACCINE 00:00:00 [facility] SARS-COV-2 COVID-19 2021-01-29 Completed Unive rsity of PFIZER VACCINE 00:00:00 [facility] SARS-COV-2 COVID-19 2021-01-08 Completed Unive rsity of PFIZER VACCINE 00:00:00 [facility] SARS-COV-2 COVID-19 2021-01-08 Completed Unive rsity of PFIZER VACCINE 00:00:00 [facility] SARS-COV-2 COVID-19 2021-01-08 Completed Unive rsity of PFIZER VACCINE 00:00:00 [facility] SARS-COV-2 COVID-19 2021-01-08 Completed Unive rsity of PFIZER VACCINE 00:00:00 [facility] SARS-COV-2 COVID-19 2021-01-08 Completed Unive rsity of PFIZER VACCINE 00:00:00 [facility] SARS-COV-2 COVID-19 2021-01-08 Completed Unive rsity of PFIZER VACCINE 00:00:00 [facility] Pfizer COVID-19 Pfizer COVID-19 2021-01-08 Completed Vaccine Vaccine 00:00:00 Influenza Virus 2019-08-07 Completed Universit y of Vaccine Quad .5 mL 00:00:00 [place] [facility] IM 6+ MO Branch Influenza Virus 2019-08-07 Completed Universit y of Vaccine [place] .5 mL 00:00:00 [place] Medical IM 6+ MO Branch Influenza Virus 2019-08-07 Completed Universit y of Vaccine [place] .5 mL 00:00:00 [place] Medical IM 6+ MO Branch Influenza Virus 2019-08-07 Completed Universit y of Vaccine [place] .5 mL 00:00:00 [place] Medical IM 6+ MO Branch Influenza Virus 2019-08-07 Completed Universit y of Vaccine [place] .5 mL 00:00:00 [place] Medical IM 6+ MO Branch Influenza Virus 2019-08-07 Completed Universit y of Vaccine [place] .5 mL 00:00:00 [place] Medical IM 6+ MO Branch Influenza Virus 2019-08-07 Completed Universit y of Vaccine [place] .5 mL 00:00:00 [place] Medical IM 6+ MO Branch Influenza Virus 2019-08-07 Completed Universit y of Vaccine [place] .5 mL 00:00:00 [place] Medical IM 6+ MO Branch Influenza Virus 2019-08-07 Completed Universit y of Vaccine [place] .5 mL 00:00:00 [place] [facility] IM 6+ MO Branch Influenza Virus 2019-08-07 Completed Universit y of Vaccine [place] .5 mL 00:00:00 [place] [facility] IM 6+ MO Branch Influenza Virus 2019-08-07 Completed Universit y of Vaccine [place] .5 mL 00:00:00 [facility] 6+ MO Branch Rubella 2010-11-02 Completed University of 00:00:00 [facility] Tdap 2010-11-02 Completed University of 00:00:00 [facility] Rubella 2010-11-02 Completed University of 00:00:00 [facility] Tdap 2010-11-02 Completed University of 00:00:00 [facility] Rubella 2010-11-02 Completed University of 00:00:00 [place] [facility] Tdap 2010-11-02 Completed University of 00:00:00 [facility] Rubella 2010-11-02 Completed University of 00:00:00 [facility] Tdap 2010-11-02 Completed University of 00:00:00 [facility] Rubella 2010-11-02 Completed University of 00:00:00 [facility] Tdap 2010-11-02 Completed University of 00:00:00 [facility] Rubella 2010-11-02 Completed University of 00:00:00 [place] [facility] Tdap 2010-11-02 Completed University of 00:00:00 [place] [facility] Rubella 2010-11-02 Completed University of 00:00:00 [facility] Tdap 2010-11-02 Completed University of 00:00:00 [facility] Rubella 2010-11-02 Completed University of 00:00:00 [facility] Tdap 2010-11-02 Completed University of 00:00:00 [facility] Rubella 2010-11-02 Completed University of 00:00:00 [facility] Tdap 2010-11-02 Completed University of 00:00:00 [place] [facility] Rubella 2010-11-02 Completed University of 00:00:00 [place] [facility] Tdap 2010-11-02 Completed University of 00:00:00 [place] [facility] Rubella 2010-11-02 Completed University of 00:00:00 [place] [facility] Tdap 2010-11-02 Completed University of 00:00:00 [place] [facility] Rubella 2010-11-02 Completed University of 00:00:00 [place] [facility] Tdap 2010-11-02 Completed University of 00:00:00 [place] [facility] Rubella 2010-11-02 Completed University of 00:00:00 [place] [facility] Tdap 2010-11-02 Completed University of 00:00:00 [place] [facility] Rubella 2010-11-02 Completed University of 00:00:00 [place] [facility] Tdap 2010-11-02 Completed University of 00:00:00 [place] [facility] Rubella 2010-11-02 Completed University of 00:00:00 [place] [facility] Tdap 2010-11-02 Completed University of 00:00:00 [place] [facility] Rubella 2010-11-02 Completed University of 00:00:00 [place] [facility] Tdap 2010-11-02 Completed University of 00:00:00 [place] [facility] Rubella 2010-11-02 Completed University of 00:00:00 [place] [facility] Tdap 2010-11-02 Completed University of 00:00:00 [place] [facility] Rubella 2010-11-02 Completed University of 00:00:00 [place] [facility] Tdap 2010-11-02 Completed University of 00:00:00 [place] [facility] Rubella 2010-11-02 Completed University of 00:00:00 [place] [facility] Tdap 2010-11-02 Completed University of 00:00:00 [place] [facility] Rubella 2010-11-02 Completed University of 00:00:00 [place] [facility] TDAP 2010-11-02 Completed [facility] 00:00:00 [facility] Rubella 2010-11-02 Completed [facility] 00:00:00 [facility] TDAP 2010-11-02 Completed [facility] 00:00:00 [facility] Rubella 2010-11-02 Completed [facility] 00:00:00 [facility] TDAP 2010-11-02 Completed [facility] 00:00:00 [facility] Rubella 2010-11-02 Completed [facility] 00:00:00 [facility] TDAP 2010-11-02 Completed [facility] 00:00:00 [facility] Rubella 2010-11-02 Completed [facility] 00:00:00 [facility] TDAP 2010-11-02 Completed [facility] 00:00:00 [facility] Rubella 2010-11-02 Completed [facility] 00:00:00 [facility] TDAP 2010-11-02 Completed [facility] 00:00:00 [facility] Rubella 2010-11-02 Completed [facility] 00:00:00 [facility] TDAP 2010-11-02 Completed [facility] 00:00:00 [facility] Rubella 2010-11-02 Completed [facility] 00:00:00 [facility] TDAP 2010-11-02 Completed [facility] 00:00:00 [facility] Rubella 2010-11-02 Completed [facility] 00:00:00 [facility] TDAP 2010-11-02 Completed [facility] 00:00:00 [facility] Rubella 2010-11-02 Completed [facility] 00:00:00 [facility] Tdap 2010-11-02 Completed [facility] 00:00:00 [facility] Rubella 2010-11-02 Completed [facility] 00:00:00 [facility] Rubella 2010-11-02 Completed [facility] 00:00:00 [facility] TDAP 2010-11-02 Completed [facility] 00:00:00 [facility] Tdap 2010-11-02 Completed [facility] 00:00:00 [facility] Rubella 2010-11-02 Completed [facility] 00:00:00 [facility] Tdap 2010-11-02 Completed [facility] 00:00:00 [facility] Rubella 2010-11-02 Completed [facility] 00:00:00 [facility] Tdap 2010-11-02 Completed [facility] 00:00:00 [facility] Vital Signs Vital Name Observation Time Observation Value Comments Source Systolic blood 2021-11-19 15:33:00 139 mm[Hg] Univer sity of pressure [facility] Diastolic blood 2021-11-19 15:33:00 100 mm[Hg] Unive rsity of pressure [facility] Heart rate 2021-11-19 15:33:00 80 /min [facility] Body temperature 2021-11-19 15:33:00 37.33 Tamika Univ ersity [facility] Respiratory rate 2021-11-19 15:33:00 16 /min Univ ersity of [facility] Body weight 2021-11-19 15:33:00 86.183 kg [facility]i [facility] BMI 2021-11-19 15:33:00 31.62 kg/m2 Universi ty of [facility] Oxygen saturation in 2021-11-19 15:33:00 98 /min University of Arterial blood by [place] [facility] Pulse oximetry [facility] Systolic blood 2021-06-15 01:13:00 182 mm[Hg] Univer sity of pressure [facility] Diastolic blood 2021-06-15 01:13:00 123 mm[Hg] Unive rsity of pressure [facility] Heart rate 2021-06-15 01:13:00 83 /min Universi ty of [facility] Body temperature 2021-06-15 01:13:00 36.78 Tamika Univ ersity of [facility] Respiratory rate 2021-06-15 01:13:00 18 /min Univ ersity of [facility] Body weight 2021-06-15 01:13:00 81.647 kg [facility] BMI 2021-06-15 01:13:00 29.95 kg/m2 [facility] Oxygen saturation in 2021-06-15 01:13:00 99 /min University of Arterial blood by [facility] Pulse oximetry Branch Systolic blood 2021-06-15 01:13:00 182 mm[Hg] Univer sity of pressure [facility] Diastolic blood 2021-06-15 01:13:00 123 mm[Hg] Unive rsity of pressure [facility] Heart rate 2021-06-15 01:13:00 83 /min Universi ty of [facility] Body temperature 2021-06-15 01:13:00 36.78 Tamika Univ ersity of [facility] Respiratory rate 2021-06-15 01:13:00 18 /min Univ ersity of [facility] Body weight 2021-06-15 01:13:00 81.647 kg [facility] BMI 2021-06-15 01:13:00 29.95 kg/m2 [facility] Oxygen saturation in 2021-06-15 01:13:00 99 /min [facility]terial blood by [facility] Systolic blood 2020-04-24 06:14:47 167 mm[Hg] Univer sity of pressure [facility] Diastolic blood 2020-04-24 06:14:47 100 mm[Hg] Unive rsity of pressure [facility] Heart rate 2020-04-24 06:14:47 78 /min Universi ty of [facility] Respiratory rate 2020-04-24 06:14:47 18 /min Univ ersity of [facility] Oxygen saturation in 2020-04-24 06:14:47 100 /min University of Arterial blood by [facility] Pulse oximetry Branch Body temperature 2020-04-24 03:04:00 36.89 Tamika Univ ersity of [facility] Body weight 2020-04-24 03:03:00 81.647 kg Universi ty of [facility] BMI 2020-04-24 03:03:00 29.95 kg/m2 [facility] Systolic blood 2020-04-24 06:14:47 167 mm[Hg] Univer sity of pressure [facility] Diastolic blood 2020-04-24 06:14:47 100 mm[Hg] Unive rsity of pressure [facility] Heart rate 2020-04-24 06:14:47 78 /min Universi ty of [facility] Respiratory rate 2020-04-24 06:14:47 18 /min Univ ersity of [facility] Oxygen saturation in 2020-04-24 06:14:47 100 /min University of Arterial blood by [facility] Pulse oximetry Branch Body temperature 2020-04-24 03:04:00 36.89 Tamika Univ ersity of [facility] Body weight 2020-04-24 03:03:00 81.647 kg [facility]i ty of [facility] BMI 2020-04-24 03:03:00 29.95 kg/m2 [facility] Systolic blood 2019-07-11 18:45:00 128 mm[Hg] Univer sity of pressure [facility] Diastolic blood 2019-07-11 18:45:00 86 mm[Hg] Unive rsity of pressure [facility] Heart rate 2019-07-11 18:45:00 104 /min [facility]i [facility] Body temperature 2019-07-11 18:45:00 36.83 Tamika Univ ersity of [facility] Respiratory rate 2019-07-11 18:45:00 19 /min Univ ersity of [facility] Body height 2019-07-11 18:45:00 165.1 cm Universi [facility] of [facility] Body weight 2019-07-11 18:45:00 85.928 kg [facility]i [facility] of [facility] BMI 2019-07-11 18:45:00 31.52 kg/m2 [facility] of [facility] Systolic blood 2019-07-11 18:45:00 128 mm[Hg] Univer sity of pressure [facility] Diastolic blood 2019-07-11 18:45:00 86 mm[Hg] Unive rsity of pressure [facility] Heart rate 2019-07-11 18:45:00 104 /min Universi ty of [facility] Body temperature 2019-07-11 18:45:00 36.83 Tamika Univ ersity of [facility] Respiratory rate 2019-07-11 18:45:00 19 /min Univ ersity of [facility] Body height 2019-07-11 18:45:00 165.1 cm Universi ty of [facility] Body weight 2019-07-11 18:45:00 85.928 kg [facility]i ty of [facility] BMI 2019-07-11 18:45:00 31.52 kg/m2 [facility] Systolic blood 2019-06-28 20:12:00 131 mm[Hg] Univer sity of pressure [facility] Diastolic blood 2019-06-28 20:12:00 89 mm[Hg] Unive rsity of pressure [facility] Heart rate 2019-06-28 20:12:00 68 /min Universi ty of [facility] Body temperature 2019-06-28 20:12:00 36.83 Tamika Univ ersity of [facility] Respiratory rate 2019-06-28 20:12:00 16 /min Univ ersity of [facility] Body weight 2019-06-28 20:12:00 85.73 kg Universi ty of [facility] BMI 2019-06-28 20:12:00 31.45 kg/m2 Universi ty of [facility] Oxygen saturation in 2019-06-28 20:12:00 100 /min [facility] Arterial blood by [facility] Pulse oximetry Branch Systolic blood 2019-06-28 20:12:00 131 mm[Hg] Univer sity of pressure [facility] Diastolic blood 2019-06-28 20:12:00 89 mm[Hg] Unive rsity of pressure [facility] Heart rate 2019-06-28 20:12:00 68 /min Universi ty of [facility] Body temperature 2019-06-28 20:12:00 36.83 Tamika Univ ersity of [facility] Respiratory rate 2019-06-28 20:12:00 16 /min Univ ersity of [facility] Body weight 2019-06-28 20:12:00 85.73 kg Universi ty of [facility] BMI 2019-06-28 20:12:00 31.45 kg/m2 Universi ty of [facility] Oxygen saturation in 2019-06-28 20:12:00 100 /min University of Arterial blood by [facility] Pulse oximetry Branch Systolic blood 2019-06-21 14:22:00 146 mm[Hg] Univer sity of pressure [facility] Diastolic blood 2019-06-21 14:22:00 102 mm[Hg] Unive rsity of pressure [facility] Heart rate 2019-06-21 14:22:00 119 /min [facility]i ty of [facility] Body temperature 2019-06-21 14:22:00 36.67 Tamika Univ ersity of [facility] Respiratory rate 2019-06-21 14:22:00 16 /min Univ ersity of [facility] Body height 2019-06-21 14:22:00 165.1 cm Universi ty of [facility] Body weight 2019-06-21 14:22:00 86.274 kg [facility] BMI 2019-06-21 14:22:00 31.65 kg/m2 [facility] Systolic blood 2019-06-12 19:16:00 137 mm[Hg] Univer sity of pressure [facility] Diastolic blood 2019-06-12 19:16:00 82 mm[Hg] Unive rsity of pressure [facility] Heart rate 2019-06-12 19:16:00 111 /min Universi ty of [facility] Body temperature 2019-06-12 19:16:00 36.72 Tamika Univ ersity of [facility] Body height 2019-06-12 19:16:00 165.1 cm [facility] Body weight 2019-06-12 19:16:00 86.9 kg [facility] BMI 2019-06-12 19:16:00 31.88 kg/m2 [facility] ty of [facility] Systolic blood 2019-06-12 19:16:00 137 mm[Hg] Univer sity of pressure [facility] Diastolic blood 2019-06-12 19:16:00 82 mm[Hg] Unive rsity of pressure [facility] Heart rate 2019-06-12 19:16:00 111 /min [facility]i ty [facility] [place] [facility] [place] Body temperature 2019-06-12 19:16:00 36.72 Tamika Univ ersity of [facility] Body height 2019-06-12 19:16:00 165.1 cm Universi ty of [facility] Body weight 2019-06-12 19:16:00 86.9 kg Universi ty of [facility] BMI 2019-06-12 19:16:00 31.88 kg/m2 Universi ty of [facility] Systolic blood 2019-06-02 17:32:43 153 mm[Hg] Univer sity of pressure [facility] Diastolic blood 2019-06-02 17:32:43 115 mm[Hg] Unive rsity of pressure [facility] Heart rate 2019-06-02 17:32:43 89 /min Universi ty of [facility] Respiratory rate 2019-06-02 17:32:43 18 /min Univ ersity of [facility] Oxygen saturation in 2019-06-02 17:32:43 98 /min University Arterial blood by [facility] Pulse oximetry Branch Body temperature 2019-06-02 17:24:00 36.22 Tamika Univ ersity of [facility] [place] Body weight 2019-06-02 17:22:00 90.719 kg Universi ty of [facility] BMI 2019-06-02 17:22:00 33.28 kg/m2 Universi ty of [facility] Systolic blood 2019-05-31 18:41:00 144 mm[Hg] Univer sity of pressure [facility] Diastolic blood 2019-05-31 18:41:00 112 mm[Hg] Unive rsity of pressure [facility] Heart rate 2019-05-31 18:39:00 98 /min Universi ty of [facility] Body temperature 2019-05-31 18:39:00 36.89 Tamika Univ ersity of [facility] Respiratory rate 2019-05-31 18:39:00 19 /min Univ ersity of [facility] Body height 2019-05-31 18:39:00 165.1 cm Universi ty of [facility] Body weight 2019-05-31 18:39:00 91.258 kg Universi ty of [facility] BMI 2019-05-31 18:39:00 33.48 kg/m2 Universi ty of [facility] Systolic blood 2019-05-30 19:45:00 139 mm[Hg] Univer sity of pressure [facility] Diastolic blood 2019-05-30 19:45:00 99 mm[Hg] Unive rsity of [facility] Heart rate 2019-05-30 19:45:00 78 /min Universi ty of [facility] Respiratory rate 2019-05-30 19:45:00 16 /min [facility] Oxygen saturation in 2019-05-30 19:45:00 95 /min [facility] Arterial blood by [facility] Pulse oximetry Branch Body temperature 2019-05-30 16:32:00 36.56 Tamika [facility] Body weight 2019-05-30 16:32:00 86.183 kg Universi ty of [facility] BMI 2019-05-30 16:32:00 31.62 kg/m2 Universi ty of [facility] Systolic blood 2019-05-30 15:43:00 142 mm[Hg] Univer sity of pressure [facility] Diastolic blood 2019-05-30 15:43:00 120 mm[Hg] Unive rsity of [facility] Body height 2019-05-30 14:45:00 165.1 cm [facility]i ty of [facility] [place] Body weight 2019-05-30 14:45:00 89.926 kg Universi ty of [facility] BMI 2019-05-30 14:45:00 32.99 kg/m2 Universi ty of [facility] Heart rate 2019-05-30 14:45:00 89 /min Universi ty of [facility] Body temperature 2019-05-30 14:45:00 36.72 Tamika [facility] Respiratory rate 2019-05-30 14:45:00 18 /min [facility] Procedures Procedure Date / Time Performing Clinician Source Performed XR FOOT 3+ VW RIGHT 2021-11-19 16:08:11 Criss Ly [facility] CONSENT/REFUSAL FOR 2021-11-19 15:20:42 Doctor Unassigned, [facility] DIAGNOSIS AND TREATMENT [facility] CONSENT/REFUSAL FOR 2021-06-15 01:12:47 Doctor Vázquez [facility] DIAGNOSIS AND TREATMENT [place] [facility] [place] REFERRAL- REQUEST/RESPONSE 2021-04-21 05:01:00 Doctor Vázquez [facility] Name Medical [place] NOTICE OF PRIVACY 2021-01-29 17:01:41 Doctor Vázquez [facility] PRACTICES [place] [facility] [place] CONSENT/REFUSAL FOR 2021-01-29 17:01:22 Doctor Vázquez [facility] DIAGNOSIS AND TREATMENT [place] [place] ASSIGNMENT OF BENEFITS 2021-01-29 17:01:08 Doctor Vázquez [facility] LIPASE 2020-04-24 05:09:00 Lexus Cardoso [facility] HEPATIC FUNCTION PANEL 2020-04-24 05:09:00 Lexus Cardoso [facility] ([id number]) (ALB,T.PRO,BILI Medical [place] T,BU/BC,ALT,AST,ALK PHOS) BASIC METABOLIC PANEL (NA, 2020-04-24 05:09:00 Lexus Cardoso [facility] K, CL, CO2, GLUCOSE, BUN, Medica l Branch CREATININE, CA) ETHANOL 2020-04-24 05:09:00 Lexus Cardoso [facility] CBC WITH DIFFERENTIAL 2020-04-24 05:09:00 Lexus Cardoso [facility] PROTHROMBIN TIME / INR 2020-04-24 05:09:00 Lexus Cardoso [facility] US GALL BLADDER 2020-04-24 04:54:30 Aliza Liu [facility] CONSENT/REFUSAL FOR 2020-04-24 02:51:29 Doctor Vázquez [facility] DIAGNOSIS AND TREATMENT [facility] [place] DISCLOSURE AND CONSENT, 2019-07-12 05:01:00 Doctor Katihe [facility] MEDICAL AND SURGICAL [facility] PROCEDURES POCT TEST 2019-07-11 20:39:00 Claire Leal [facility] DISCLOSURE AND CONSENT, 2019-06-21 05:01:00 Doctor Kathie [facility] MEDICAL AND SURGICAL [facility] PROCEDURES NO SHOW OR MISSED 2019-06-12 19:09:30 Doctor Unassigned, [facility] APPOINTMENT POLICY [facility] ACKNOWLEDG[facility] TOTAL BETA HCG ASSAY 2019-06-02 18:06:00 Marty Sanchez [facility] COMP. METABOLIC PANEL 2019-05-31 20:14:00 Gemini [facility] [place] ([id number]) [facility] HCV ANTIBODY 2019-05-31 20:14:00 Gemini [facility] URINALYSIS 2019-05-30 17:45:00 Des [facility] EXTRA TUBE URINE CULTURE 2019-05-30 17:45:00 Des [facility] URINE CULTURE 2019-05-30 16:25:00 Noel Pennie [place] [facility] GC & CHLAMYDIA AMPLIFIED 2019-05-30 16:25:00 Pennie Cohen [facility] GLUCOSE 1 HOUR POST 2019-05-30 15:43:00 Noel Pennie [facility] PRANDIAL [facility] CBC WITH DIFFERENTIAL 2019-05-30 15:43:00 Noel Pennie [facility] GLYCOSYLATED HEMOGLOBIN 2019-05-30 15:43:00 Noel [facility] (A1C) [facility] HEPATITIS B SURFACE 2019-05-30 15:43:00 Noel Pennie [facility] ANTIGEN [facility] WORKUP, BLOOD 2019-05-30 15:43:00 Noel Pennie [facility] BANK [facility] FREE T4 2019-05-30 15:43:00 Noel [facility] THYROID STIMULATING 2019-05-30 15:43:00 Noel [facility] HORMONE [facility] RUBELLA SCREEN IGG 2019-05-30 15:43:00 Noel [facility] VZV ANTIBODY SCREEN 2019-05-30 15:43:00 Noel Pennie [facility] ANTIGEN TYPING PATIENT 2019-05-30 15:43:00 Noel Pennie [facility] PANEL IDENTIFICATION 2019-05-30 15:43:00 Pennie Cohen [facility] ANTIBODY TITER INTERPS 2019-05-30 15:43:00 Pennie Cohen [facility] FREE T3 2019-05-30 15:43:00 Pennie Cohen [place] [facility] HIV 1/2 AG-AB WITH REFLEX 2019-05-30 15:43:00 [facility] - [place] 2019-05-30 15:43:00 Pennie Cohen [facility] IGG/IGM [facility] POCT TEST 2019-05-30 14:47:[address] [facility] ASSIGNMENT OF BENEFITS 2019-05-30 14:21:07 Doctor Unassigned, [facility] Name [facility] REFERRAL- REQUEST/RESPONSE 2019-05-21 05:01:00 Doctor Unassigned , [facility] [place] [facility] Encounters Start End Encounter Admission Attending Care Care Encounter Source Date/Time Date/Time Type Type Clinicians Facility Department ID 2021-08-23 Emergency [facility] [id number] Univers 17:33:17 ity [facility] 2021-08-20 Emergency [facility] [id number] Univers 04:24:59 ity [facility] 2021-08-09 Inpatient Yo, In [facility] DA[facility] [id number] [facility] 09:30:00 [id number] [facility] 2021-08-05 Inpatient EL Yo, In [facility]AC[facility] DAYS [id number] [facility] 10:30:00 [id number] [facility] 2020-12-22 Inpatient HCAMN RODERICK [id number] [facility] 09:14:00 [id number] [facility] 2021-11-19 2021-11-19 Emergency [facility] [id number] Univers 09:44:00 10:44:00 CRISS amezquita [facility] 2021-11-19 2021-11-19 Emergency [facility] [id number] Univers 09:44:00 10:44:00 Criss [id number] [id number] [address] 2021-09-21 2021-09-21 Outpatient GCCOVIDV GCCOVIDV [id number] GCCOVID 00:00:00 00:00:00 V 2021-08-09 2021-08-09 Outpatient EL Yo, In [facility] DA[facility] [id number] [facility] 05:33:00 05:33:00 56 [facility] 2021-07-28 2021-07-28 Outpatient EL Yo, In [facility] LABO [id number] [facility] 16:39:00 16:39:00 [id number] [facility] 2021-07-28 2021-07-28 Outpatient EL Yo, In [facility] [id number] [facility] 16:39:00 16:39:00 65 [facility] 2021-06-14 2021-06-14 Emergency TRAUMA [id number] 20:16:00 21:59:00 [place] [id number] 2021-06-14 2021-06-14 Emergency TRAUMA [id number] [facility] 20:16:00 21:59:00 [place] [id number] [place] [id number] [facility] 014 [place] 2021-06-02 2021-06-02 RAMA Olmos [id number] 00:00:00 00:00:00 (Out) Spencer TORRES [id number] HOSPITAL [id number] [id number] [facility] 2021-06-02 2021-06-02 RAMA Olmos [id number] [facility] 00:00:00 00:00:00 (Out) Spencer TORRES [id number] it y of HOSPITAL [id number] Avni as [id number] [facility] 043 Branch 2021-04-21 2021-04-21 Orders Doctor ONTIVEROS [id number] 00:00:00 00:00:00 Only Unassigned, BRIAN [id number] [place] [facility] [id number] [id number] 2021-04-21 2021-04-21 Orders Doctor RAMA [id number] Univers 00:00:00 00:00:00 Only Unassigned, BRIAN [id number] ity of [place] [facility] [id number] Avni as [id number] [address] 2021-02-22 2021-02-22 [facility] Radiology [facility] [id number] 13:00:00 23:59:00 Encounter SPECIALTY [id number] CARE [id number] CENTER AT [id number] ADRIAN Guzman [facility] 2021-02-22 2021-02-22 [facility] Radiology [facility] [id number] Univers 13:00:00 23:59:00 Encounter SPECIALTY [id number] ity of C[id number] [id number] Pa dical [address] 2021-02-22 2021-02-22 Outpatient R RADIOLOGY [facility] [id number] Univers 13:00:00 13:00:00 [id number] ity [facility] 2021-02-22 2021-02-22 Outpatient R RADIOLOGY [facility] [id number] Univers 00:00:00 00:00:00 ity [facility] 2021-02-01 2021-02-01 Outpatient R RADIOLOGY [facility] [id number] Univers 00:00:00 00:00:00 [id number] ity [facility] 2021-02-01 2021-02-01 Outpatient R RADIOLOGY [facility] [id number] Univers 00:00:00 00:00:00 ity [facility] 2021-01-29 2021-01-29 [facility] Radiology [facility] [id number] 11:20:00 23:59:00 Encounter [place] [id number] [place] 4.2.7.2.686 [place] [id number] [facility] 2021-01-29 2021-01-29 Hospital Radiology [facility] [id number] Univers 11:20:00 23:59:00 Encounter [place] [id number] ity [facility] [id number] [id number] [facility] 800 Branch 2021-01-29 2021-01-29 Outpatient R MARYSOL, [facility] [id number] Univers 13:50:00 13:50:00 [place]LE [facility] 2021-01-29 2021-01-29 Outpatient [facility] [id number] Univers 11:20:00 11:20:00 [id number] [facility] 2021-01-29 2021-01-29 Outpatient GCCOVIDV GCCOVIDV [id number] GCCOVID 00:00:00 00:00:00 V 2021-01-21 2021-01-21 Outpatient [facility] [id number] Univers 13:40:00 13:40:00 [id number] [facility] 2021-01-08 2021-01-08 [id number] Univers 13:50:00 13:50:00 NIGEL [facility] 2021-01-08 2021-01-08 Outpatient GCCOVIDV GCCOVIDV [id number] [facility] 00:00:00 00:00:00 V 2021-01-07 2021-01-07 [facility] 1.2.840.114 [id number] 00:00:00 00:00:00 Outreach Nigel PRIMARY 350.1.13.10 Wm CARE 4.2.7.2.686 PAVILLION [id number] [id number] 2021-01-07 2021-01-07 Patient Fabio [facility] 1.2.840.114 [id number] Univers 00:00:00 00:00:00 Outreach Nigel PRIMARY 350.1.13.10 i ty of [place] [phone] Pa dical [facility] Branch 2020-05-06 2020-05-06 Laboratory Only, Dic [facility] 1.2.840.114 [id number] 15:30:16 15:45:16 Only Test HEALTH 350.1.13.10 FAMILY 4.2.7.2.686 MEDICINE [phone] RODOLFO [address] [place] [address] 2020-05-06 2020-05-06 Laboratory Only, Dic Test [facility] 1.2.840. 114 [id number] Univers 15:30:16 15:45:16 Only Tima Willis HEALTH 350.1.13.10 ity of [place] [phone] Med ical RODOLFO [address] [place] [address] 2020-05-06 2020-05-06 Outpatient R [facility] [id number] -[id number] Univers 15:30:00 15:30:00 [id number] ity [facility] 2020-05-06 2020-05-06 Outpatient R [facility] [id number] Univers 15:30:00 15:30:00 ity of [facility] 2020-05-05 2020-05-05 [facility] 1.2.450.250 [id number] 00:00:00 00:00:00 (Out) [place] HEALTH 350.1.13.10 Health & CLINICS 4.2.7.2.686 Wellness-Te [id number] [place] [address] 2020-05-05 2020-05-05 [facility] 1.2.143.385 [id number] Univers 00:00:00 00:00:00 (Out) [place] HEALTH 350.1.13.10 i ty of Health & CLINICS 4.2.7.2.686 Avni as Wellness-Te [phone] [address] 2020-04-23 2020-04-24 Emergency Lexus Cardoso [facility] 1.2.840 .114 [id number] 22:03:57 01:40:00 Aries [facility] 350.1.13.10 [facility] 4.2.7.2.686 [facility] [phone] [address] ([facility]) 2020-04-23 2020-04-24 Emergency Lexus Cardoso [facility] 1.2.840 .114 [id number] Univers 22:03:57 01:40:00 Aries Aliza Health 350.1.13.10 ity of [facility] [place].2.7.2.[place] [facility] [phone] [address] ([facility]) 2020-03-25 2020-03-25 Transition Donita Dominguez 1.2.840.114 [id number] 00:00:00 00:00:00 of Care Mindy Ulloa 350.1.13.10 [place] 4.2.7.2.686 [id number] 403 2020-03-25 2020-03-25 Transition Donita Dominguez 1.2.840.114 [id number] Univers 00:00:00 00:00:00 of Care Mindy Ulloa 350.1.13.10 ity of [place]2.7.2.[place] [id number] [place] [address] Branch 2020-03-19 2020-03-24 [facility] [id number] Univers 09:28:18 09:12:00 AUSTYN it y of [facility] 2019-09-02 2019-09-02 Outpatient [facility] [id number] -[id number] Univers 00:00:00 00:00:00 CONRADO [id number] ity [facility] 2019-08-06 2019-08-06 Outpatient Leti [facility] [id number] Univers 08:30:00 10:26:34 SERENA ity [facility] 2019-07-12 2019-07-12 Orders Doctor ONTIVEROS 1.2.840.114 [id number] 00:00:00 00:00:00 Only Unassigned, BRIAN 350.1.13.10 [place] [facility] 4.2.7.2.686 [id number] 009 2019-07-12 2019-07-12 Orders Doctor RAMA 1.2.840.114 [id number] Univers 00:00:00 00:00:00 Only Unassigned, BRAIN 350.1.13.10 ity of [place] [facility] 4.2.7.2.686 Avni as [phone] [place] [address] Branch 2019-07-11 2019-07-11 Office [place], [facility] UNIVERSIT 1.2.840.114 [id number] 13:37:26 14:41:12 Visit Resident Y HEALTH 350.1.13.10 CLINICS 4.2.7.2.686 [id number] 113 2019-07-11 2019-07-11 Office Jose, [facility] Resident UNIVERSIT 1.2.8 40.114 [id number] [facility] 13:37:26 14:41:12 Visit Conrado Anderson [facility] 350.1.13.10 ity of [facility] 4.2.7.2.[place] [phone] [facility] 113 Branch 2019-06-28 2019-06-28 Urgent [facility] 1.2.438.771 [id number] 14:48:16 15:48:16 Care [facility] 350.1.13.10 [place] 4.2.7.2.686 [facility] [phone] Primary & 370 Specialty Care 2019-06-28 2019-06-28 Urgent [facility] 1.2.840. 114 [id number] [facility] 14:48:16 15:48:16 Care Unknown, [facility] 350.1.13.10 [facility] 4.2.7.2.686 [facility] [phone] [facility] Primary & [facility] Branch Specialty Care 2019-06-21 2019-06-21 Office BRENNON Galvan 1.2.382.851 [id number] [facility] 09:06:03 09:36:03 Visit [facility] 350.1.13.10 i ty of CLINICS 4.2.7.2.686 [place] [phone] [facility] 199 Branch 2019-06-21 2019-06-21 Outpatient R MANDY [facility] [id number] Univers 09:00:00 09:00:00 [facility] ity of [facility] 2019-06-21 2019-06-21 Orders Doctor ONTIVEROS 1.2.840.114 [id number] 00:00:00 00:00:00 Only UnassignedBRIAN 350.1.13.10 [place] [facility] 4.2.7.2.686 [id number] 009 2019-06-21 2019-06-21 Orders Doctor ONTIVEROS 1.2.840.114 [id number] Univers 00:00:00 00:00:00 Only Unassigned, BRIAN 350.1.13.10 ity of [place] [facility] 4.2.7.2.686 Avni as [phone] [facility] 009 Branch 2019-06-13 2019-06-13 Outpatient R MANDY [facility] [id number] Univers 14:00:00 14:00:00 HISROSEMARY ity of [facility] 2019-06-12 2019-06-12 Office Virology, [facility] 1.2.985.160 [id number] 14:10:20 14:50:06 Visit Pcp Pedi PRIMARY 350.1.13.10 Infec CARE 4.2.7.2.686 Disease PAVILLION [phone] [facility] 2019-06-12 2019-06-12 Office Virology, Pcp Pedi Infec Disease [facility] 1.2.840.114 [id number] [facility] 14:10:20 14:50:06 Visit Unknown, Attending PRIMARY 350.1.13.10 ity of Ramon García CARE 4.2.7.2.686 [facility] [phone] [facility] 167 [place] 2019-06-12 2019-06-12 Letter BRENNON Mccain 1.2.930.197 [id number] Univers 00:00:00 00:00:00 (Out) [facility] HEALTH 350.1.13.10 i ty of CLINICS 4.2.7.2.[place] [phone] [facility] 113 Branch 2019-06-12 2019-06-12 Orders Doctor RAMA 1.2.840.114 [id number] Univers 00:00:00 00:00:00 Only Unassigned, BRIAN 350.1.13.10 ity of [place] [facility] 4.2.7.2.686 Avni as [phone] [facility] 009 Branch 2019-06-12 2019-06-12 Patient Hi Antonieta [facility] 1.2.840.114 [id number] Univers 00:00:00 00:00:00 Outreach M SPECIALTY 350.1.13.10 ity of [place] 4.2.7.2.[place] [id number] [facility] 167 Branch 2019-06-06 2019-06-06 Telephone BRENNON Singletary 1.2.840.114 [id number] Univers 00:00:00 00:00:00 Apliiq 350.1.13.10 ity of CLINICS 4.2.7.2.[place] [phone] [facility] 113 Branch 2019-06-02 2019-06-02 Emergency Laura, TRAUMA 1.2.106.968 [id number] Univers 12:25:20 14:40:00 Marty CHRISTIANSON 350.1.13.10 ity of [place]2.7.2.[place] [phone] [facility] 014 Branch 2019-06-02 2019-06-02 Nurse Masha Hester 1.2.840.114 [id number] Univers 00:00:00 00:00:00 Triage BRIAN 350.1.13.10 it y of HOSPITAL 4.2.7.2.686 Avni as [id number] [facility] 019 Branch 2019-05-31 2019-05-31 Vtc Technician [facility] UNIVERSIT 1.2.840.114 [id number] Univers 15:03:30 15:16:56 Visit [employer] 350.1.13.10 ity of CLINICS 4.2.7.2.686 [place] [phone] [facility] 316 Branch 2019-05-31 2019-05-31 Routine Fellow, Jose Cruz [facility] Rmchp Mfm UNIVERSI T 1.2.840.114 [id number] Univers 13:34:23 15:01:16 Gemini Apliiq 350.1.13.1 0 ity of Visit CLINICS 4.2.7.2.686 [place] [phone] [facility] 113 Branch 2019-05-30 2019-05-30 Emergency Faulconer, TRAUMA 1.2.840.114 [id number] Univers 11:33:37 15:01:00 [place] CENTER 350.1.13.10 it y of 4[place]2.7.2.686 [place] [phone] [facility] 014 Branch 2019-05-30 2019-05-30 Initial REECE CohenIT 1.2.406.894 [id number] Univers 09:45:00 11:12:50 Pennie Y HEALTH 350.1.13.10 ity of Visit CLINICS [place].2.7.2.[place] [id number] [address] 2019-05-30 2019-05-30 Outpatient R NOEL [facility] [id number] Univers 09:30:00 11:12:50 PENNIE ity of [facility] 2019-05-30 2019-05-30 Orders Doctor RAMA 1.2.840.114 [id number] Univers 00:00:00 00:00:00 Only Unassigned, BRIAN 350.1.13.10 ity of [place] [facility] 4.2.7.2.686 Anvi as [phone] [address] 2019-05-24 2019-05-24 Telephone BRENNON Cohen 1.2.840.114 [id number] Univers 00:00:00 00:00:00 Pennie Y HEALTH 350.1.13.10 i ty of CLINICS [place].2.[place] [phone] [address] 2019-05-21 2019-05-21 Orders Doctor RAMA 1.2.840.114 [id number] Univers 00:00:00 00:00:00 Only Unassigned, BRIAN 350.1.13.10 ity of [place] [facility] 4.2.7.2.686 Avni as [phone] [address] Results Test Description Test Time Test Comments Results Result Comments Source SURGICAL PATH SPECIMENS 2021-08-10 15:28:00 Test Item Value Reference Range Interpretation Commzeb dewitt SURGICAL RUN DATE: PATH 08/10/21 [place] - LAB PAGE 1 RUN TIME: 1528 SPECIMENS Specime n Inquiry RUN USER: INTERFACE (test code = S) PATIENT: YURI MAZARIEGOS LOC: [facility] U #: [id number] AGE/SX: [age]/F ROOM: RE08/09/21REG DR: Brent Carlson MD : 77 BED: DIS: STATUS: DEP [facility] TLOC: SPEC #: [id number] RECD: STATUS: ALEXPrabhu REQ #: [id number] KELI: 08/09/[address]: Brent Carlson MD ENTERED: 08/09/21 SP TYPE: SURG SPEC OTHR DR : No Primary or Family PhysicianORDERED: L3 99277 CODES: [id number] - GALLBLADDER, NO COPIES TO: No Primary or Family Physician Brent Carlson MD [address] [place] [address] [address] [place] [address] PROCEDURES: L3 [id number] (08/09/21) TISSUES: GALLBLADDER, NOS FINAL DIAGNOSIS Gallbladder, ch olecystectomy: Chronic cholecystitis; cholelithiasis. GROSS AND MICROSCOPIC GROSS EXAMINA TION: received in formalin labeled "gallbladder" is an intact cholecystectomy specimen, 9. 5 x 4.5 x 3 cm. The serosa is glistening, with a rough hepatic bed. The lumen contains multiple ligh t yellow stones, 0.4 to 0.7 cm in maximum dimension. The mucosa is partly denuded. The gall b ladder wall measures 0.2 cm in thickness. Repressentative sections are submitted in one cassette. MICROSCOPIC EXAMINATION: A microscopic examination was performed to arrive at the diagnostic conclusion reported. Signed SIGNATURE ON FILE Maribell Hayesuzmakatarina 08/10/21 1528 END OF REPORT PROTHROMBIN [id number] 06:59:00 Test Item Value Reference Range Interpretation Comments PROTHROMBIN TIME 10.9 SECONDS 9.3-12.9 N PATIENT (test code = PTP) INTERNATIONAL NORMAL 1.0 0.8-1.2 N TARGET RATIO (test code = INR BY IN DICATION INR) Indication INR1. Prophyl axis of venous thrombos is 2.0 - 3. 0 (orthopedic michelle jazzmine), Prophylaxis of venous thrombos is (other than hig h-risk surgery), Catina tment of Deep Vein Thrombosis/Pulm onary Embolism, Preve ntion of systemic emb olism - Tissue heart va lves, Acute Myocardia l Infarction (to prevent systemic embo lism), Valvular heart disease, Atri al Fibrillation, Bileaflet mecha nical valve in aortic position.2. Mec hanical prosthetic valv es (high risk), 2.5 - 3.5 Presence of Lupus Anticoagu lant or Antiphospholi pid Antibodies, Pre vention of systemic e mbolism - Acute Myocard ial Infarction (t o prevent recurre nt infarct). THROMBOPLASTIN TIME [id number] 06:59:00 Test Item Value Reference Range Interpretation Comments THROMBOPLASTIN TIME 28.5 Seconds 25.0-39.5 N Ther apeutic PARTIAL (test code = Range: 50.4 - 88.3 PTT) Seconds Effective 02/05/2019 COVID 19 Asymptomatic IH [id number] 12:34:00 Test Item Value Reference Range Interpretation Comments COVID 19 Asymptomatic Negative Negative A nega tive result is IH AG (test code = presumpti ve and should COVNONPUIAG) be confirmedwit h an FDA authorized mole cular assay, if neces shelby forpatient mehnaz gement.A positive result does not rule out co-inf ections withother patho gens.This test detects corine th viable (live) and non-viable,SARS -CoV, and SARS-CoV-2. Alberto t performance dep ends on theamount of vi yuly (antigen) in th e sample.This alberto t has not been FDA cleare d or approved; the t est hasbeen authori zed by FDA under an Em ergency Use Authorizati on(EUA) for use by labo ratories certified under the CLIA thatmeet the requirements to perform moderate, high or waivedcomplexit y tests. HCG SERUM [id number] 12:02:00 Test Item Value Reference Range Interpretation Comments HCG SERUM QUAL (test code = SERUM NEGATIVE NEGATIVE HCGQL) COMPREHENSIVE METABOLIC [id number] 17:36:00 Test Item Value Reference Range Interpretation Comments SODIUM (test code = NA) 140 mEq/L 134-147 N POTASSIUM (test code = 3.8 mEq/L 3.4-5.0 N K) CHLORIDE (test code = 107 mEq/L 100-108 N CL) CARBON DIOXIDE (test 25 mEq/l 21-33 N code = CO2) ANION GAP (test code = 12 0-20 N GAP) GLUCOSE (test code = 103 mg/dL 70-110 N GLU) BLOOD UREA NITROGEN 13 mg/dL 7-18 N (test code = BUN) GLOMERULAR FILTRATION 90.9 95-105 L Units of measure = RATE (test code = GFR) ml/mi n/1.73 m2 CREATININE (test code = 0.7 mg/dL 0.6-1.3 N CREAT) TOTAL PROTEIN (test 7.2 g/dL 6.4-8.2 N code = PROT) ALBUMIN (test code = 3.90 g/dL 3.4-5.0 N ALB) CALCIUM (test code = 8.9 mg/dL 8.0-10.5 N CA) BILIRUBIN TOTAL (test 0.90 mg/dL 0.0-1.0 N code = BILT) SGOT/AST (test code = 65 IUnit/L 15-37 H AST) SGPT/ALT (test code = 72 IUnit/L 30-65 H ALT) ALKALINE PHOSPHATASE 114 IUnit/L 20-125 N TOTAL (test code = ALKP) HCG SERUM [id number] 17:36:00 Test Item Value Reference Range Interpretation Comments HCG SERUM QUAL (test code = SERUM NEGATIVE NEGATIVE HCGQL) CBC W/AUTO [id number] 17:16:00 Test Item Value Reference Range Interpretation Comments WHITE BLOOD CELL (test code = 5.5 x10 3/uL 4.5-11.0 N WBC) RED BLOOD CELL (test code = 4.74 x10 6/uL 3.54-5.02 N RBC) HEMOGLOBIN (test code = HGB) 12.5 g/dL 11.0-15.0 N HEMATOCRIT (test code = HCT) 39.2 % 33.0-45.0 N MEAN CELL VOLUME (test code = 82.7 fL 81.0-99.0 N MCV) MEAN CELL HGB (test code = MCH) 26.4 pg 27.0-33.0 L MEAN CELL HGB CONCETRATION 31.9 g/dL 33.0-37.0 L (test code = MCHC) RED CELL DISTRIBUTION WIDTH CV 13.6 % 11.5-14.5 N (test code = RDW) RED CELL DISTRIBUTION WIDTH SD 41.3 fL 37.0-54.0 N (test code = RDW-SD) PLATELET COUNT (test code = 365 x10 3/uL 150-400 N PLT) MEAN PLATELET VOLUME (test code 9.3 fL 7.0-9.0 H = MPV) NEUTROPHIL % (test code = NT%) 48.9 % 56.0-77.0 L IMMATURE GRANULOCYTE % (test 0.2 % 0.0-2.0 N code = IG%) LYMPHOCYTE % (test code = LY%) 31.6 % 14.0-32.0 N MONOCYTE % (test code = MO%) 9.4 % 4.8-9.0 H EOSINOPHIL % (test code = EO%) 9.0 % 0.3-3.7 H BASOPHIL % (test code = BA%) 0.9 % 0.0-2.0 N NUCLEATED RBC % (test code = 0.0 % 0-0 N NRBC%) NEUTROPHIL # (test code = NT#) 2.71 x10 3/uL 2.0-7.6 N IMMATURE GRANULOCYTE # (test 0.01 x10 3/uL 0.00-0.03 N code = IG#) LYMPHOCYTE # (test code = LY#) 1.75 x10 3/uL 1.0-3.8 N MONOCYTE # (test code = MO#) 0.52 x10 3/uL 0.1-0.8 N EOSINOPHIL # (test code = EO#) 0.50 x10 3/uL 0.0-0.2 H BASOPHIL # (test code = BA#) 0.05 x10 3/uL 0.0-0.2 N NUCLEATED RBC # (test code = 0.00 x10 3/uL 0.0-0.1 N NRBC#) MANUAL DIFF REQUIRED (test code NO = MDIFF) - XR CHEST 2 [id number] 00:00:00 [facility] : 1975 Sex: F FAX: Brent Hazel MD [phone] [place]: [address]: REG Name: YURI MAZARIEGOS [facility] [place] : 1975 Age/S: 45/F [address] [place] [address] Unit #: [id number] Loc: [place] [address] Phys: Yo,In S Acct: [id number] Dis Date: Status: REG CLI PHONE #: [phone] Exam Date: 07/28/2021 170 FAX #: [phone] Reason: PREOP EXAMS: CPT CODE: [id number] XR CHEST 2 V 51467 PROCEDURE INFORMATION: Exam: XR ChestExam date and time: 07/28/2021 5:02 PM Age: 45 years old Clinical indication: Pre-operative exam; Respiratory screening exam; Additional info: Preop TECHNIQUE: Imaging protocol: XR of the chest. Views: 2 views. PA and Lateral COMPARISON: No relevant prior studies available. FINDINGS: Lungs: The lungs are clear. Pleural spaces: Unremarkable. No pleural effusion. No pneumothorax. Heart/Mediastinum: The heart size is normal. The pulmonary vasculature is normal. The mediastinal contour is normal. The trachea is midline. Bones/joints: No acute abnormality seen. IMPRESSION: No acute cardiopulmonary findings at 1729 Reported and signed by: Harvey Boone M.D. CC: In Rosalinda Aldo Technologist: RT Conchis(Leti) Trnscrd Date/Time/By: 07/28/2021 (1728) : By: [email or web address] [facility] Print D/T: S: 07/28/2021 (1728) PAGE 1 Signed ReportProthrombin Time (PT) / [id number] 05:54:00 Test Item Value Reference Range Interpretation Comments PROTIME PATIENT (test See_Comment [Auto mated message] code = 5964-2) The system [employer] generated this result transmitted ref erence range: 12.0 - 1 4.7 Seconds. The re ference range was not u sed to interpret this result as normal/abnor mal. INR (test code = 6301-6) Nor mal INR <1.1; Warfarin Therap eutic range 2.0 to 3. 0 or 2.5 to 3.5, dep ending upon the indica tions. Lab Interpretation (test Normal code = 78177-4) [facility] Metabolic Panel (NA, K, CL, CO2, GLUCOSE, BUN, CREATININE, CA)2020-04-24 05:44:00 Test Item Value Reference Range Interpretation Comments NA (test code = 135 mmol/L 135-145 5861735732) K (test code = 4.1 mmol/L 3.5-5 0623717137) CL (test code = 104 mmol/L 98-108 5715701120) CO2 TOTAL (test code = 24 mmol/L 23-31 1035162311) AGAP (test code = 2-16 3249394171) BUN (test code = 11 mg/dL 7-23 0476159597) GLUCOSE (test code = 94 mg/dL 70-110 2537525631) CREATININE (test code 0.70 mg/dL 0.5-1.04 = 1594651898) CALCIUM (test code = 8.8 mg/dL 8.6-10.6 2988629732) eGFR Calculation mL/min/1.73m2 (Non-) (test code = 6049510090) eGFR Calculation mL/min/1.73m2 () (test code = 8543737630) PAUL (test code = PAUL) Association of Glomerular Filtration Rate (GFR) and Staging of Kidney Disease* + -+ + ---+| GFR (mL/min/1.73 m2) ?| With Kidney Damage ?| ?Without Kidney Damage+ -------+ ------+ ---------+| ?>90 ?| ?Stage one ?| ? Normal ?+ --+ -+ ----+| ?60-89 ?| ?Stage two ?| ? Decreased GFR ? + -+ + ---+| ?30-59 ?| ?Stage three ?| ? Stage three ? + -+ + ---+| ?15-29 ?| ?Stage four ? | ? Stage four ?+ --+ -+ ----+| ?<15 (or dialysis) ? ?| ?Stage five ? | ? Stage five ?+ --+ -+ ----+ *Each stage assumes the associated GFR level has been in effect for at least three months. ?Stages 1 to 5, with or without kidney disease, indicate chronic kidney disease. Notes: Determination of stages one and two (with eGFR >59mL/min/1.73 m2) requires estimation of kidney damage for at least three months as defined by structural or functional abnormalities of the kidney, manifested by either:Pathological abnormalities or Markers of kidney damage (including abnormalities in the composition of the blood or urine or abnormalities in imaging tests). [facility] (ALB, T.PRO, BILI T, BU/BC, ALT, AST, ALK PHOS)2020-04-24 05:44:00 Test Item Value Reference Range Interpretation Comments TOTAL BILI (test code = 5626363635) 2.1 mg/dL 0.1-1.1 H BILI UNCON (test code = 0977333136) 1.4 mg/dL 0.1-1.1 H BILI CONJ (test code = 3572181481) 0.0 mg/dL 0-0.3 T PROTEIN (test code = 8944943776) 6.7 g/dL 6.3-8.2 ALBUMIN (test code = 4646974416) 4.0 g/dL 3.5-5 ALK PHOS (test code = 1300623990) 254 U/L 34-122 H ALTv (test code = 1742-6) 237 U/L 5-35 H AST(SGOT) (test code = 7531598233) 528 U/L 13-40 H Lab Interpretation (test code = Abnormal 02596-4) [facility] 05:44:00 Test Item Value Reference Range Interpretation Comments ALCOHOL (test code = <10 mg/dL 6039424066) PAUL (test code = Toxic Greater than or PAUL) equal to 80 mg/dL. NOTE: Whole blood values are approximately 10% to 15% lower than serum and plasma. [facility] Hospital[facility] [id number] 05:43:00 Test Item Value Reference Range Interpretation Comments LIPASE (test code = 0639483640) 91 U/L 0-220 Lab Interpretation (test code = Normal 80418-2) [facility] WITH [id number] 05:17:00 Test Item Value Reference Range Interpretation Comments WBC (test code = See_Comment [Automated 6690-2) message] The sy stem which generated this result transmitted reference range : 4.30 - 11.10 10*3/?L. The reference range was not used to interpret this result as normal/abnormal . RBC (test code = See_Comment [Automated 789-8) message] The sy stem which generated this result transmitted reference range : 3.93 - 5.25 10*6/?L. The reference range was not used to interpret this result as normal/abnormal . HGB (test code = 13.7 g/dL 11.6-15 718-7) HCT (test code = 42.1 % 35.7-45.2 4544-3) MCV (test code = 84.5 fL 80.6-95.5 787-2) MCH (test code = 27.5 pg 25.9-32.8 785-6) MCHC (test code = 32.5 g/dL 31.6-35.1 786-4) RDW-SD (test code = 43.6 fL 39-49.9 57286-4) RDW-CV (test code = 14.3 % 12-15.5 788-0) PLT (test code = See_Comment [Automated 777-3) message] The sy stem which generated this result transmitted reference range : 166 - 358 10*3/ ?L. The reference r eugene was not used to interpret this result as normal/abnormal . MPV (test code = 9.6 fL 9.5-12.9 74810-5) NRBC/100 WBC (test See_Comment [Automat ed code = 5178632713) message] The system which generated this result transmitted reference range : 0.0 - 10.0 /100 WBCs. The refer ence range was not u sed to interpret th is result as normal/abnormal . NRBC x10^3 (test code <0.01 See_Comment [Auto mated = 2471253337) message] The s ystem which generated this result transmitted reference range : 10*3/?L. The reference range was not used to interpret this result as normal/abnormal . GRAN MAT (NEUT) % 72.7 % (test code = 770-8) IMM GRAN % (test code 0.20 % = 3231647379) LYMPH % (test code = 15.5 % 736-9) MONO % (test code = 8.4 % 5905-5) EOS % (test code = 3.0 % 713-8) BASO % (test code = 0.2 % 706-2) GRAN MAT x10^3(ANC) 4.07 10*3/uL 1.88-7.09 (test code = [id number]) IMM GRAN x10^3 (test <0.03 0-0.06 code = [id number]) LYMPH x10^3 (test code 0.87 10*3/uL 1.32-3.29 L = 731-0) MONO x10^3 (test code 0.47 10*3/uL 0.33-0.92 = 742-7) EOS x10^3 (test code = 0.17 10*3/uL 0.03-0.39 711-2) BASO x10^3 (test code <0.03 0.01-0.07 = 704-7) Lab Interpretation Abnormal (test code = 05840-7) [id number] Test Item Value Reference Range Interpretation Comments POCT PREG (test code = 1605) Negative On board controls acceptable with C Yes Line (test code = 3574) POCT PREG LOT # (test code = 3575) POCT PREG TEST DATE (test code = 3576) Lab Interpretation (test code = Normal 55487-0) [facility] BETA HCG [id number] 18:54:00 Test Item Value Reference Range Interpretation Comments BETA HCG (test See_Comment [Automated m essage] code = The system [facility] [id number]) generated this result transmit yury reference range : Non- fe male and male patien ts: <5 mIU/mL. The reference range was not used to interpret this result as normal/abnormal . PAUL (test code Gestational = PAUL) Age?Range (mIU/mL)1-10?Weeks?4 [id number] Weeks?[id number] -22 Weeks?[id number]- 40 Weeks?7532-810855Aio tin has been reported to cause a negative bias, interpret results relative to patient's use of biotin. [facility] [id number] 02:29:00 Test Item Value Reference Range Interpretation Comments HCV Semi-Quantitative (test code = 50777-5) [facility]. METABOLIC PANEL (48868)2019-06-01 00:08:00 Test Item Value Reference Range Interpretation Comments NA (test code = 139 mmol/L 135-145 [id number]) K (test code = 5.2 mmol/L 3.5-5 H 9309891123) CL (test code = 104 mmol/L 98-108 8606650656) CO2 TOTAL (test code = 26 mmol/L 23-31 9129589976) AGAP (test code = 2-16 5698883537) BUN (test code = 11 mg/dL 7-23 0357869878) GLUCOSE (test code = 80 mg/dL 70-110 2055637167) CREATININE (test code = 0.71 mg/dL 0.5-1.04 0276316964) TOTAL BILI (test code = 1.0 mg/dL 0.1-1.7 5615965979) CALCIUM (test code = 10.0 mg/dL 8.6-10.6 2612612756) T PROTEIN (test code = 7.6 g/dL 6.3-8.2 6252200398) ALBUMIN (test code = 4.4 g/dL 3.5-5 6451655295) ALK PHOS (test code = 83 U/L 34-122 4575678713) ALT(SGPT) (test code = 156 U/L 9-51 H 0010867469) AST(SGOT) (test code = 180 U/L 13-40 H 0986465471) eGFR Calculation mL/min/1.73m2 (Non-) (test code = 2716009300) eGFR Calculation mL/min/1.73m2 () (test code = 5481847390) PAUL (test code = PAUL) Association of Glomerular Filtration Rate (GFR) and Staging of Kidney Disease*+ + + +| GFR (mL/min/1.73 m2)?| With Kidney Damage?|?Without Kidney Damage+ --------+ --------+ +|?>90?|?S tage one?|? Normal?+ ---------+ ---------+ +|?60-89? |?Stage two?|? Decreased GFR? + --+ --+ ------+|?30-59?|?Stage three?|? Stage three? + --+ --+ ------+|?15-29?|?Stage four? |? Stage four?+ -------+ -------+ +|?<15 (or dialysis)?|?Stage five? |? Stage five?+ -------+ -------+ +*Each stage assumes the associated GFR level has been in effect for at least three months.?Stages 1 to 5, with or without kidney disease, indicate chronic kidney disease.Notes: Determination of stages one and two (with eGFR >59mL/min/1.73 m2) requires estimation of kidney damage for at least three months as defined by structural or functional abnormalities of the kidney, manifested by either:Pathological abnormalities or Markers of kidney damage (including abnormalities in the composition of the blood or urine or abnormalities in imaging tests). Lab Interpretation Abnormal (test code = 73235-5) [facility] & CHLAMYDIA AMPLIFIED [id number] 23:22:00 Test Item Value Reference Range Interpretation Comments Lab Interpretation (test code = Normal 61254-4) [facility] HospitalRUBELLA SCREEN (BECCA) [id number] 15:53:00 Test Item Value Reference Range Interpretation Comments Rubella screen IgG Positive Negative (test code = 0065261737) PAUL (test code = PAUL) Positive - Indicates the patient was exposed to Rubella through infection or vaccination.Negative - Indicates the patient could be susceptible to Rubella infection.Equivocal - A second specimen should be sent. [facility] HospitalVZV ANTIBODY [id number] 15:53:00 Test Item Value Reference Range Interpretation Comments VZV IgG antibody Positive Negative (test code = 73310-9) PAUL (test code = PAUL) Positive - Indicates the patient was exposed to VZV through infection or vaccination.Negative - Indicates the patient could be susceptible to VZV infection.Equivocal - A second specimen should be sent for testing. [facility] HospitalGALV ONLY - SYPHILIS [id number] 14:06:00 Test Item Value Reference Range Interpretation Comments Syphilis IgG/IgM (test Non-reactive Non-reactive code = 63267-8) PAUL (test code = PAUL) Non-reactive - No serologic evidence of T. pallidum infection. Cannot exclude incubating or early syphilis. Submit a second specimen in 2-4 weeks if syphilis is clinically suspected.Equivocal - Further testing to follow.Reactive - Further testing to follow. Lab Interpretation (test Normal code = 48864-9) [facility] HospitalURINE [id number] 12:05:00 Test Item Value Reference Range Interpretation Comments URINE CULTURE (test No aerobic growth (< code = 630-4) 1000 CFU/mL) [facility] HospitalANTIGEN TYPING [id number] 04:30:14 Test Item Value Reference Range Interpretation Comments ANTIGEN ID (test E Antigen Negative Perfo rmed at [facility] code = 1687) Laboratory [facility] Blood [address] [address]Wwyl Free: [phone] A No. [id number] ANTIGEN ID (test C Antigen Positive Perfo rmed at [facility] code = 62) Laboratory [address] [address]Hyuu Free: [phone] A No. [id number] ANTIGEN ID (test c Antigen Positive Perfo rmed at [facility] code = 63) Laboratory [facility] Blood [address] [place] [address]L[place]u Free: [phone] A No. [id number] [facility] HospitalANTIBODY TITER [id number] 04:30:12 Test Item Value Reference Range Interpretation Comments TITERED AB (test Ab Titered: E Performed at [facility] code = 1141) Laboratory [address] [address]Ga[place] Free: [phone] A No. [id number] AB TITER (test Antibody Titer: <1 Perform ed at [facility] code = 247) Laboratory [facility] Blood [address] [address]Fmku Free: [phone] A No. [id number] [facility] HospitalPANEL [id number] 04:30:09 Test Item Value Reference Range Interpretation Comments ANTIBODY ID (test code Anti-E Anti- E too weak to = 245) titer.Performed at [facility] Laboratory [facility] Blood Bank3 [address] [facility] s [address]Vszi Free: [phone] A No. [id number] [facility] HospitalPAN [id number] 04:30:09 Test Item Value Reference Range Interpretation Comments ANTIBODY ID (test code Anti-E Anti- E too weak to = 245) titer.Performed at [facility] Laboratory [facility] Blood Bank3 [address] [facility] [place] [address]Nyxk Free: [phone] A No. [id number] [facility] HospitalHIV 1/2 AG-AB WITH [id number] 20:46:00 Test Item Value Reference Range Interpretation Comments HIV Semi-quantitative (test code = Reactive Negative A 67470-4) Lab Interpretation (test code = Abnormal 73708-2) [facility] HospitalTHYROID STIMULATING [id number] 20:39:00 Test Item Value Reference Range Interpretation Comments TSH (test code = See_Comment H [Automated message] 0492130060) The system [employer] generated this result transmitted ref erence range: 0.45 - 4 .70 mIU/L. The refe rence range was not u sed to interpret this result as normal/abnor mal. Lab Interpretation (test Abnormal code = 27757-9) [facility] [id number] 20:24:00 Test Item Value Reference Range Interpretation Comments FREE T3 (test code = 5964632046) 1.55 pg/mL 2.77-5.27 L Lab Interpretation (test code = Abnormal 00612-8) [facility] [id number] 20:24:00 Test Item Value Reference Range Interpretation Comments FREE T4 (test code = See_Comment L [Autom ated message] 3101943645) The system [employer] generated this result transmitted ref erence range: 0.78 - 2 .20 ng/dL:. The ref erence range was not u sed to interpret this result as normal/abnor mal. Lab Interpretation (test Abnormal code = 11724-9) [facility] HospitalPRENATAL WORKUP, BLOOD [id number] 20:09:27 Test Item Value Reference Range Interpretation Comments ABO & RH (test code A POSITIVE Performe d at [facility] = 20) Laboratory [facility] Blood Bank3 [address] [facility] s [address]Zfpw Free: [phone] A No. [id number] IAT (test code = Positive Performed a t [facility] 1185) Laboratory [facility] Blood Bank3 [address] [facility] s [address]Aleg Free: [phone] A No. [id number] [facility] HospitalGlycosylated Hemoglobin (A1C)2019-05-30 19:19:00 Test Item Value Reference Range Interpretation Comments HGB A1C (test code = 4548-4) 5.2 % 4-6 Lab Interpretation (test code = Normal 79203-1) [facility] HospitalGlycosylated Hemoglobin (A1C)2019-05-30 19:19:00 Test Item Value Reference Range Interpretation Comments HGB A1C (test code = 4548-4) 5.2 % 4-6 Lab Interpretation (test code = Normal 15887-1) [facility] HospitalHEPATITIS B SURFACE [id number] 18:27:00 Test Item Value Reference Range Interpretation Comments HBsAg Semi-Quantitative (test code = 5195-3) [facility]FACE [id number] 18:27:00 Test Item Value Reference Range Interpretation Comments HBsAg Semi-Quantitative (test code = 5195-3) [facility] HospitalURINALYSIS2019-08-08 18:10:00 Test Item Value Reference Range Interpretation Comments APPEARANCE (test code = Hazy Clear A 2502440058) COLOR (test code = Yellow Yellow 0123969964) PH (test code = 4.8-8.0 9316199742) SP GRAVITY (test code = 1.003-1.030 1196984374) GLU U QUAL (test code = Normal Normal 6025367697) BLOOD (test code = 2+ Negative A 4262473038) KETONES (test code = Negative Negative 8343398305) PROTEIN (test code = Negative Negative 2887-8) UROBILIN (test code = Normal Normal 1953237931) BILIRUBIN (test code = Negative Negative 6126266597) NITRITE (test code = Negative Negative 9600874362) LEUK KERMIT (test code = Negative Negative 1222768413) RBC/HPF (test code = See_Comment H [Autom ated message] 7446471471) The system [employer] generated this result transmitted ref erence range: 0 - 3 HP F. The reference range was not used to int erpret this result as normal/abnormal . WBC/HPF (test code = See_Comment [Autom ated message] 4323946896) The system [employer] generated this result transmitted ref erence range: 0 - 5 HP F. The reference range was not used to int erpret this result as normal/abnormal . BACTERIA (test code = Few Negative A 0216715507) MUCOUS (test code = Slight Negative LPF A 1618008569) SQ EPITH (test code = See_Comment H [Auto mated message] 8213138936) The system [employer] generated this result transmitted ref erence range: <=2 HPF. The reference range was not used to int erpret this result as normal/abnormal . Lab Interpretation (test Abnormal code = 34068-5) [facility] HospitalGlucose 1 Hour Post [id number] 17:57:00 Test Item Value Reference Range Interpretation Comments GLUC 1 HR (test code = 7916970970) 108 mg/dL 120-170 L Lab Interpretation (test code = Abnormal 84928-6) [facility] HospitalGlucose 1 Hour Post [id number] 17:57:00 Test Item Value Reference Range Interpretation Comments GLUC 1 HR (test code = 3475485097) 108 mg/dL 120-170 L Lab Interpretation (test code = Abnormal 27953-3) [facility] HospitalCB WITH [id number] 17:55:00 Test Item Value Reference Range Interpretation Comments WBC (test code = See_Comment [Automated message] 6690-2) The system [employer] generated this result transmitted ref erence range: 4.30 - 1 1.10 10*3/?L. The re ference range was not u sed to interpret this result as normal/abnor mal. RBC (test code = See_Comment [Automated message] 789-8) The system [employer] generated this result transmitted ref erence range: 3.93 - 5 .25 10*6/?L. The re ference range was not u sed to interpret this result as normal/abnor mal. HGB (test code = 13.8 g/dL 11.6-15 718-7) HCT (test code = 41.6 % 35.7-45.2 4544-3) MCV (test code = 92.0 fL 80.6-95.5 787-2) MCH (test code = 30.5 pg 25.9-32.8 785-6) MCHC (test code = 33.2 g/dL 31.6-35.1 786-4) RDW-SD (test code 49.2 fL 39-49.9 = 89197-4) RDW-CV (test code 14.6 % 12-15.5 = 788-0) PLT (test code = See_Comment [Automated message] 777-3) The system [employer] generated this result transmitted ref erence range: 166 - 35 8 10*3/?L. The re ference range was not u sed to interpret this result as normal/abnor mal. MPV (test code = 10.2 fL 9.5-12.9 98878-2) NRBC/100 WBC (test See_Comment [Automat ed message] code = 5011097119) The syste m which generated this result transmitted ref erence range: 0.0 - 10 .0 /100 WBCs. The refer ence range was not u sed to interpret this result as normal/abnor mal. NRBC x10^3 (test <0.01 See_Comment [Automated message] code = 7509153448) The syste m which generated this result transmitted ref erence range: 10*3/?L. The reference range was not used to interpr et this result as normal/abnormal . GRAN MAT (NEUT) % 59.1 % (test code = 770-8) IMM GRAN % (test 0.60 % code = 2157272168) LYMPH % (test code 26.6 % = 736-9) MONO % (test code 6.4 % = 5905-5) EOS % (test code = 6.4 % 713-8) BASO % (test code 0.9 % = 706-2) GRAN MAT 3.14 10*3/uL 1.88-7.09 x10^3(ANC) (test code = 2161025802) IMM GRAN x10^3 0.03 10*3/uL 0-0.06 (test code = 9362398384) LYMPH x10^3 (test 1.41 10*3/uL 1.32-3.29 code = 731-0) MONO x10^3 (test 0.34 10*3/uL 0.33-0.92 code = 742-7) EOS x10^3 (test 0.34 10*3/uL 0.03-0.39 code = 711-2) BASO x10^3 (test 0.05 10*3/uL 0.01-0.07 code = 704-7) [facility] WITH [id number] 17:55:00 Test Item Value Reference Range Interpretation Comments WBC (test code = See_Comment [Automated message] 3190-2) The system [employer] generated this result transmitted ref erence range: 4.30 - 1 1.10 10*3/?L. The re ference range was not u sed to interpret this result as normal/abnor mal. RBC (test code = See_Comment [Automated message] 369-8) The system [employer] generated this result transmitted ref erence range: 3.93 - 5 .25 10*6/?L. The re ference range was not u sed to interpret this result as normal/abnor mal. HGB (test code = 13.8 g/dL 11.6-15 718-7) HCT (test code = 41.6 % 35.7-45.2 4544-3) MCV (test code = 92.0 fL 80.6-95.5 787-2) MCH (test code = 30.5 pg 25.9-32.8 785-6) MCHC (test code = 33.2 g/dL 31.6-35.1 786-4) RDW-SD (test code 49.2 fL 39-49.9 = 65292-0) RDW-CV (test code 14.6 % 12-15.5 = 788-0) PLT (test code = See_Comment [Automated message] 297-3) The system [employer] generated this result transmitted ref erence range: 166 - 35 8 10*3/?L. The re ference range was not u sed to interpret this result as normal/abnor mal. MPV (test code = 10.2 fL 9.5-12.9 92368-8) NRBC/100 WBC (test See_Comment [Automat ed message] code = 2323543869) The syste m which generated this result transmitted ref erence range: 0.0 - 10 .0 /100 WBCs. The refer ence range was not u sed to interpret this result as normal/abnor mal. NRBC x10^3 (test <0.01 See_Comment [Automated message] code = 3406428830) The syste m which generated this result transmitted ref erence range: 10*3/?L. The reference range was not used to interpr et this result as normal/abnormal . GRAN MAT (NEUT) % 59.1 % (test code = 770-8) IMM GRAN % (test 0.60 % code = 6905546873) LYMPH % (test code 26.6 % = 736-9) MONO % (test code 6.4 % = 5905-5) EOS % (test code = 6.4 % 713-8) BASO % (test code 0.9 % = 706-2) GRAN MAT 3.14 10*3/uL 1.88-7.09 x10^3(ANC) (test code = 0534228987) IMM GRAN x10^3 0.03 10*3/uL 0-0.06 (test code = 8665754529) LYMPH x10^3 (test 1.41 10*3/uL 1.32-3.29 code = 731-0) MONO x10^3 (test 0.34 10*3/uL 0.33-0.92 code = 742-7) EOS x10^3 (test 0.34 10*3/uL 0.03-0.39 code = 711-2) BASO x10^3 (test 0.05 10*3/uL 0.01-0.07 code = 704-7) [facility] [id number] 14:47:00 Test Item Value Reference Range Interpretation Comments POCT PREG (test code = 1605) Positive On board controls acceptable with C Yes Line (test code = 3574) POCT PREG LOT # (test code = 3575) POCT PREG TEST DATE (test code = 3576) Lab Interpretation (test code = Abnormal 48670-2) [facility] HospitalPOCT [id number] 14:47:00 Test Item Value Reference Range Interpretation Comments POCT PREG (test code = 1605) Positive On board controls acceptable with C Yes Line (test code = 3574) POCT PREG LOT # (test code = 3575) POCT PREG TEST DATE (test code = 3576) Lab Interpretation (test code = Abnormal 53304-0) [facility]
[2022-01-09] MEDS ORDERED: HYDROCODONE/APAP 7.5/325 MG TAB ONE (16:26)
--- NOTE | 2022-01-09 17:59 | RAD REPORT ---
EXAM DESCRIPTION: RAD - Wrist Left 3 View - 01/09/2022 5:12 pm CLINICAL HISTORY: PAIN COMPARISON: No comparisons FINDINGS: No fracture is identified. There is no dislocation or periosteal reaction noted. No foreig n body or other soft tissue abnormality. IMPRESSION: Negative left wrist examination.
--- NOTE | 2022-01-09 18:00 | RAD REPORT ---
EXAM DESCRIPTION: RAD - Foot Left 3 View - 01/09/2022 5:12 pm CLINICAL HISTORY: PAIN COMPARISON: No comparisons FINDINGS: No fracture, dislocation or periosteal reaction. No acute or destructive bony process. Fi rst MTP joint degenerative changes are present with mild valgus angulation deformity. No air or foreign body in the soft tissues. IMPRESSION: Negative left foot examination for acute finding.
--- NOTE | 2022-01-09 18:37 | EDPHYS ---
Physician Documentation [facility] Name: Trinidad Quick Age: 46 yrs Sex: Female : 1975 Arrival Date: 01/09/2022 Time: 15:53 Bed Treatment Private MD: ED Physician Terrell Ventura HPI: 01/09 17:30 This 46 yrs old Female presents to ER via Wheelchair with complaints of Foot Injury. kb 17:30 Details of fall: The patient fell from an upright position, while walking. Onset: The kb symptoms/episode began/occurred today. Associated injuries: The patient sustained dorsum of left foot, painful injury, swelling, left wrist, painful injury. Severity of symptoms: At their worst the symptoms were moderate, in the emergency department the symptoms are unchanged. The patient has not experienced similar symptoms in the past. The patient has not recently seen a physician. Pt reports she fell on some tile and has pain to left foot and left wrist. 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 - Social history:: Smoking status: Patient denies any tobacco usage or history of. ROS: 17:28 Constitutional: Negative for fever, chills, and weight loss. kb 17:28 MS/extremity: Positive for pain, of the dorsum of left foot. 17:28 MS/extremity: Positive for pain. 17:28 All other systems are negative. 17:29 MS/extremity: Positive for pain, of the left wrist. kb Exam: 17:29 Constitutional: This is a well developed, well nourished patient who is awake, alert, kb and in no acute distress. Head/Face: Normocephalic, atraumatic. ENT: Moist Mucous membranes Cardiovascular: Regular rate and rhythm with a normal S1 and S2. No gallops, murmurs, or rubs. No pulse deficits. Respiratory: Respirations even and unlabored. No increased work of breathing. Talking in full sentences Skin: Warm, dry with normal turgor. Normal color. Neuro: Awake and alert, GCS 15, oriented to person, place, time, and situation. Moves all extremities. Normal gait. Psych: Awake, alert, with orientation to person, place and time. Behavior, mood, and affect are within normal limits. 17:29 Musculoskeletal/extremity: Extremities: grossly normal except: noted in the dorsum of left foot: pain, swelling, tenderness, noted in the left wrist: pain, tenderness, ROM: intact in all extremities, Circulation is intact in all extremities. Sensation intact. Weight bearing: is unable to bear weight. Vital Signs: 15:59 BP 163 / 122; Pulse 87; Resp 18; Temp 99; Pulse Ox 98% ; Weight 83.91 kg; Height 5 ft. ld1 4 in. (162.56 cm); Pain 8/10; 15:59 Body Mass Index 31.75 (83.91 kg, 162.56 cm) ld1 MDM: 16:04 Patient medically screened. kb 17:28 Data reviewed: vital signs, nurses notes. Data interpreted: Pulse oximetry: on room air kb is 98 %. Interpretation: normal. 18:35 Counseling: I had a detailed discussion with the patient and/or guardian regarding: the pm1 historical points, exam findings, and any diagnostic results supporting the discharge/admit diagnosis, radiology results, the need for outpatient follow up, to return to the emergency department if symptoms worsen or persist or if there are any questions or concerns that arise at home, Patient came with her own pair of crutches, will size them appropriately or give a pair here. 18:39 ED course: PMPaware reviewed. pm1 01/09 16:06 Order name: Foot Left 3 View XRAY; Complete Time: 18:25 kb 01/09 16:27 Order name: Wrist Left (3 View) XRAY; Complete Time: 18:25 ww Administered Medications: 16:25 Drug: [employer] (HYDROcodone-acetaminophen) (7.5 mg-325 mg) 1 tabs Route: PO; ww Disposition: 01/10 08:41 Co-signature as Attending Physician, Terrell Ventura MD I agree with the assessment and kdr plan of care. Disposition Summary: 01/09/22 18:37 Discharge Ordered Location: Home pm1 Problem: new pm1 Symptoms: have improved pm1 Condition: Stable pm1 Diagnosis - Other sprain of left foot pm1 - Contusion of left wrist pm1 Followup: pm1 - With: Emergency Department - When: As needed - Reason: Worsening of condition Followup: pm1 - With: Private Physician - When: 2 - 3 days - Reason: Recheck today's complaints, Continuance of care, Re-evaluation by your physician Discharge Instructions: - Discharge Summary Sheet pm1 - Contusion pm1 - Foot Sprain pm1 Forms: - Medication Reconciliation Form pm1 - Work release form pm1 - Thank You Letter pm1 - Antibiotic Education pm1 - Prescription Opioid Use pm1 Prescriptions: - Tylenol-Codeine #3 300 mg-30 mg Oral - take 2 tablet by ORAL route every 6 hours As needed; 20 tablet; Refills: 0, pm1 Product Selection Permitted Signatures: Dispatcher [employer] EDMS Norma Mckeon, MARIKA WICKP-Terrell Henson MD MD kdr Marinas, Patrick, NP CASE OPERATOR pm1 Rosie Tejada RN RN ld1 Margoth Mallory RN RN ww Corrections: (The following items were deleted from the chart) 01/09 16:03 16:02 Allergies: Morphine; ld1 ld1
--- NOTE | 2022-01-09 18:37 | ER ---
Nurse's Notes [facility] Name: Trinidad Quick Age: 46 yrs Sex: Female : 1975 Arrival Date: 01/09/2022 Time: 15:53 Bed Treatment Private MD: Diagnosis: Other sprain of left foot;Contusion of left wrist Presentation: 01/09 15:59 Chief complaint: Patient states: Cleaning a house today and stepped off some tile and ld1 fell and landed on left foot. Coronavirus screen: Vaccine status: Patient reports receiving the 2nd dose of the covid vaccine. Client denies travel out of the [place] in the last 14 days. Ebola Screen: Patient denies travel to an Ebola-affected area in the 21 days before illness onset. Initial Sepsis Screen: Does the patient meet any 2 criteria? No. Patient's initial sepsis screen is negative. Does the patient have a suspected source of infection? No. Patient's initial sepsis screen is negative. Risk Assessment: Do you want to hurt yourself or someone else? Patient reports no desire to harm self or others. Onset of symptoms was January 09, 2022. 15:59 Method Of Arrival: Wheelchair ld1 15:59 Acuity: PATI 4 ld1 Triage Assessment: 16:03 General: Appears uncomfortable, Behavior is calm, cooperative. Pain: Complains of pain ld1 in left foot. Neuro: Level of Consciousness is awake, alert, obeys commands, Oriented to person, place, time, situation, Speech is normal. Cardiovascular: Patient's skin is warm and dry. Respiratory: Airway is patent Respiratory effort is even, unlabored, Respiratory pattern is regular, symmetrical. GI: No signs and/or symptoms were reported involving the gastrointestinal system. : No signs and/or symptoms were reported regarding the genitourinary system. Derm: No signs and/or symptoms reported regarding the dermatologic system. Musculoskeletal: Swelling present in left foot. 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 - Social history:: Smoking status: Patient denies any tobacco usage or history of. Screenin:04 Abuse screen: Denies threats or abuse. Denies injuries from another. Nutritional ld1 screening: No deficits noted. Tuberculosis screening: No symptoms or risk factors identified. Fall Risk Fall in past 12 months (25 points). No secondary diagnosis (0 pts). No IV (0 pts). Ambulatory Aid- None/Bed Rest/Nurse Assist (0 pts). Gait- Normal/Bed Rest/Wheelchair (0 pts) Mental Status- Oriented to own ability (0 pts). Total Caputo Fall Scale indicates Low Risk Score (25-44 pts). Fall prevention measures have been instituted. Side Rails Up X 2 Placed close to Nursing Station Frequent Obs/Assesments occuring Family Present and informed to notify staff if they need to leave bedside As available Patient and Family Educated on Fall Prevention Program and strategies. Assessment: 16:25 General: Appears in no apparent distress. Behavior is calm, cooperative. Pain: ww Complains of pain in left foot. Neuro: Level of Consciousness is awake, alert, obeys commands, Oriented to person, place, time, situation, Speech is normal. Cardiovascular: Patient's skin is warm and dry. Respiratory: Airway is patent Respiratory effort is even, unlabored, Respiratory pattern is regular, symmetrical. GI: No signs and/or symptoms were reported involving the gastrointestinal system. : No signs and/or symptoms were reported regarding the genitourinary system. EENT: No signs and/or symptoms were reported regarding the EENT system. Derm: Skin is intact, Skin is pink, warm \T\ dry. Musculoskeletal: Swelling. 17:35 Reassessment: Patient appears in no apparent distress at this time. No changes from ww previously documented assessment. Patient and/or family updated on plan of care and expected duration. Pain level reassessed. Patient is alert, oriented x 3, equal unlabored respirations, skin warm/dry/pink. 18:45 Reassessment: Patient appears in no apparent distress at this time. No changes from ww previously documented assessment. Patient and/or family updated on plan of care and expected duration. Pain level reassessed. Vital Signs: 15:59 BP 163 / 122; Pulse 87; Resp 18; Temp 99; Pulse Ox 98% ; Weight 83.91 kg; Height 5 ft. ld1 4 in. (162.56 cm); Pain 8/10; 15:59 Body Mass Index 31.75 (83.91 kg, 162.56 cm) ld1 ED Course: 15:53 Patient arrived in ED. as 16:00 Norma Mckeon FNP-C is PHCP. kb 16:00 Terrell Ventura MD is Attending Physician. kb 16:02 Triage completed. ld1 16:03 Arm band placed on right wrist. ld1 16:25 Patient has correct armband on for positive identification. Bed in low position. Call ww light in reach. 17:12 Foot Left 3 View XRAY In Process Unspecified. EDMS 17:12 Wrist Left (3 View) XRAY In Process Unspecified. EDMS 17:49 PHCP role handed off by Norma Mckeon FNP-C pm1 17:49 Phill Castle NP is PHCP. pm1 18:01 Margoth Mallory RN is Primary Nurse. ww 18:45 No provider procedures requiring assistance completed. Patient did not have IV access ww during this emergency room visit. Administered Medications: 16:25 Drug: Follett (HYDROcodone-acetaminophen) (7.5 mg-325 mg) 1 tabs Route: PO; ww Outcome: 18:37 Discharge ordered by . pm1 18:45 Discharged to home with crutches. ww 18:45 Condition: stable 18:45 Discharge instructions given to patient, Instructed on discharge instructions, follow up and referral plans. medication usage, safety practices, crutch walking, Demonstrated understanding of instructions, follow-up care, medications, crutch walking, Prescriptions given X 1. 18:46 Patient left the ED. ww Signatures: Dispatcher [employer] EDMS Norma Mckeon FNP-C FNP-Ckb Martinez, Amelia as Phill Castle NP LINING BRUSHER pm1 Rosie Tejada RN RN ld1 Margoth Mallory RN RN ww Corrections: (The following items were deleted from the chart) 16:03 16:02 Allergies: Morphine; ld1 ld1
[2022-01-09 22:25] VITALS: BP 163/122; TEMP 99; O2SAT 98
== END 2022-01-09 18:46 | disposition home or self-care (01) ==
LOC: ER 15:51
DX: S93.602A Unspecified sprain of left foot, initial encounter (principal); S60.212A Contusion of left wrist, initial encounter; W17.89XA Other fall from one level to another, initial encounter; Y93.E9 Activity, other interior property and clothing maintenance; Y92.099 Unspecified place in other non-institutional residence as the place of occurrence of the external cause; Y99.0 Civilian activity done for income or pay; E03.9 Hypothyroidism, unspecified; I10 Essential (primary) hypertension
CPT/HCPCS: 99284